=== PATIENT | female | born 1930 | race Caucasian/White ===

== ENCOUNTER 2019-09-08 16:22 | Inpatient (IN) | payer MEDICARE ==
[~2019-09-08] VITALS: Ht 162 cm; Wt 66.9 kg
[~2019-09-08 16:22] MED LIST: ACHD5005 PO; ATOR10TA PO; LOSA1TAB23 PO; Multivitamins/Minerals Therap PO; POLY17PO31 PO; RIVA20TA2 PO; TRAM50TA2 PO; VENL37.52 PO; VENL75CA PO
[2019-09-08] MEDS ORDERED: LACTATED RINGERS 1,000 ML IV ONE ×2 (16:30→16:35)
--- NOTE | 2019-09-08 16:44 | ED Fall/Injury ---
General Stated Complaint: FALL Source: patient, family, EMS Exam Limitations: no limitations History of Present Illness Date Seen by Provider: Sep 08, 2019 Time Seen by Provider: 16:21 Initial Comments Patient presents to ER by EMS from home with chief complaint that she had a fall. She's been having episodes of feeling like she is about to pass out and he r doctor, Dr. Baker had recently started her on a new medication but she has not started taking it yet. She is on losartan for high blood pressure as well as atorvastatin. She is not feeling dizzy like the room is spinning or she's being pulled to one side or the other. No history of stroke. No weakness numbness tingling, facial droop or slurred speech. She was able to crawl to a cell phone and call for EMS. She's not sure when she fell but she knows it was this morning several hours ago. She denies dysuria fever chills, diarrhea or discharge. She does have a occasional cough. She does not use oxygen at baseline. EMS about her on 2 L because her oxygen sats were in the 90% range. Allergies and Home Medications Allergies Coded Allergies: No Known Drug Allergies (Unverified , 07/28/15) Home Medications Atorvastatin Calcium 10 Mg Tablet, 10 MG PO HS, (Reported) Hydrocodone Bit/Acetaminophen 1 Each Tablet, 1-2 TAB PO Q4H PRN for MODERATE PAIN Prescribed by: OVIDIO DURÁN on 08/04/15735 Losartan/Hydrochlorothiazide 1 Each Tablet, 1 TAB PO HS, (Reported) Polyethylene Glycol 3350 17 Gm Powd.pack, 17 GM PO DAILY PRN for CONSTIPATION Prescribed by: OVIDIO DURÁN on 08/04/15735 Rivaroxaban 20 Mg Tablet, 20 MG PO DAILY@1700 Prescribed by: OVIDIO DURÁN on 08/04/15735 Tramadol HCl 50 Mg Tablet, 50-100 MG PO Q4H PRN for MILD PAIN Prescribed by: OVIDIO DURÁN on 08/04/15735 Venlafaxine HCl 75 Mg Cap.er.24h, 75 MG PO HS, (Reported) [Multivitamins/Minerals Therap] 1 EA TABLET, 1 EA PO DAILY@0700 Prescribed by: OVIDIO DURÁN on 08/04/15735 Patient Home Medication List Home Medication List Reviewed: Yes Review of Systems Review of Systems Constitutional: No chills, No fever; malaise, weakness Eyes: Denies Blindness, Denies Blurred Vision Ears, Nose, Mouth, Throat: denies ear pain, denies ear discharge Respiratory: cough; No phlegm, No short of breath, No wheezing Cardiovascular: No chest pain, No edema Gastrointestinal: No abdominal pain, No constipation, No diarrhea, No nausea Genitourinary: No discharge, No dysuria Musculoskeletal: No back pain, No joint pain All Other Systems Reviewed Negative Unless Noted: Yes Past Thcleqo-Oeppvc-Cyjvrt Hx Patient Social History Alcohol Use: Denies Use Recreational Drug Use: No Smoking Status: Never a Smoker 2nd Hand Smoke Exposure: No Recent Foreign Travel: No Contact w/Someone Who Travel: No Immunizations Up To Date Tetanus Booster (TDap): More than 5yrs Date of Pneumonia Vaccine: Jul 30, 2015 Date of Influenza Vaccine: Jul 30, 2015 Past Medical History High Cholesterol, Hypertension Reproductive Disorders: No Sexually Transmitted Disease: No HIV/AIDS: No Fractures Cataract Depression Eczema Adverse Reaction/Blood Tranf: No Family Medical History FH: CHF (congestive heart failure) G8 BROTHER FH: hearing loss G8 BROTHER Parkinson's disease G8 BROTHER Physical Exam Vital Signs Vital Signs - First Documented 09/08/19 09/08/19 17:04 19:26 Temp 36.3 Pulse 115 Resp 18 B/P (MAP) 85/54 (64) Pulse Ox 96 O2 Flow Rate 2.00 Capillary Refill : Height, Weight, BMI Height: 5'3.00" Weight: 144lbs. oz. 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, no motor/sensory deficits, alert, normal mood/affect, oriented x 3 Skin: normal color, warm/dry Progress/Results/Core Measures Results/Orders Lab Results Laboratory Tests Test 09/08/19 16:40 09/08/19 16:59 09/08/19 18:00 09/08/19 18:10 Range/Units White Blood Count 17.3 H 4.3-11.0 10^3/uL Red Blood Count 3.47 L 4.35-5.85 10^6/uL Hemoglobin 10.9 L 11.5-16.0 G/DL Hematocrit 32 L 35-52 % Mean Corpuscular Volume 92 80-99 FL Mean Corpuscular Hemoglobin 31 25-34 PG Mean Corpuscular Hemoglobin Concent 34 32-36 G/DL Red Cell Distribution Width 14.9 H 10.0-14.5 % Platelet Count 194 130-400 10^3/uL Mean Platelet Volume 10.4 7.4-10.4 FL Neutrophils (%) (Auto) 87 H 42-75 % Lymphocytes (%) (Auto) 7 L 12-44 % Monocytes (%) (Auto) 6 0-12 % Eosinophils (%) (Auto) 0 0-10 % Basophils (%) (Auto) 0 0-10 % Neutrophils # (Auto) 15.1 H 1.8-7.8 X 10^3 Lymphocytes # (Auto) 1.1 1.0-4.0 X 10^3 Monocytes # (Auto) 1.0 0.0-1.0 X 10^3 Eosinophils # (Auto) 0.1 0.0-0.3 10^3/uL Basophils # (Auto) 0.0 0.0-0.1 10^3/uL Neutrophils % (Manual) 91 % Lymphocytes % (Manual) 4 % Monocytes % (Manual) 5 % Anisocytosis SLIGHT Prothrombin Time 15.5 H 12.2-14.7 SEC INR Comment 1.2 0.8-1.4 Activated Partial Thromboplast Time 33 24-35 SEC Sodium Level 137 135-145 MMOL/L Potassium Level 3.3 L 3.6-5.0 MMOL/L Chloride Level 103 98-107 MMOL/L Carbon Dioxide Level 20 L 21-32 MMOL/L Anion Gap 14 5-14 MMOL/L Blood Urea Nitrogen 22 H 7-18 MG/DL Creatinine 1.38 H 0.60-1.30 MG/DL Estimat Glomerular Filtration Rate 36 BUN/Creatinine Ratio 16 Glucose Level 163 H 70-105 MG/DL Lactic Acid Level 3.09 *H 5.06 *H 0.50-2.00 MMOL/L Calcium Level 9.1 8.5-10.1 MG/DL Corrected Calcium 9.1 8.5-10.1 MG/DL Total Bilirubin 0.7 0.1-1.0 MG/DL Aspartate Amino Transf (AST/SGOT) 10 5-34 U/L Alanine Aminotransferase (ALT/SGPT) 8 0-55 U/L Alkaline Phosphatase 137 H 40-136 U/L Total Creatine Kinase 47 29-168 U/L Troponin I 0.301 *H <0.028 NG/ML C-Reactive Protein High Sensitivity 1.92 H 0.00-0.50 MG/DL B-Type Natriuretic Peptide 339.6 H <100.0 PG/ML Total Protein 6.7 6.4-8.2 GM/DL Albumin 4.0 3.2-4.5 GM/DL Blood Gas Puncture Site RIGHT RADIAL Blood Gas Patient Temperature 35 Arterial Blood pH 7.42 7.37-7.43 Arterial Blood Partial Pressure CO2 26 L 35-45 MMHG Arterial Blood Partial Pressure O2 68 L 79-93 MMHG Arterial Blood HCO3 17 *L 23-27 MMOL/L Arterial Blood Total CO2 18.0 L 21.0-31.0 MMOL/L Arterial Blood Oxygen Saturation 95 94-100 % Arterial Blood Base Excess -6.9 L -2.5-2.5 MMOL/L [facility] Test POSITIVE Blood Gas Ventilator Setting NO Blood Gas Inspired Oxygen 2 L Urine Color DARK YELLOW Urine Clarity SL CLOUDY Urine pH 6.0 5-9 Urine Specific [place] 1.025 H 1.016-1.022 Urine Protein NEGATIVE NEGATIVE Urine Glucose (UA) NEGATIVE NEGATIVE Urine Ketones TRACE H NEGATIVE Urine Nitrite POSITIVE NEGATIVE Urine Bilirubin NEGATIVE NEGATIVE Urine Urobilinogen 1.0 < = 1.0 MG/DL Urine Leukocyte Esterase TRACE NEGATIVE Urine RBC (Auto) NEGATIVE NEGATIVE Urine RBC NONE /HPF Urine WBC 2-5 /HPF Urine Squamous Epithelial Cells 2-5 /HPF Urine Crystals NONE /LPF Urine Bacteria LARGE H /HPF Urine Casts NONE /LPF Urine Mucus NEGATIVE /LPF Urine Culture Indicated YES Micro Results Microbiology 09/08/19 Influenza Types A,B Antigen (KEV) - Final, Complete My Orders Orders - FLAKITA WOODS Ed Iv/Invasive Line Start (09/08/19 16:30) Lactated Ringers (Lr 1000 Ml Iv Solution (09/08/19 16:30) Cbc With Automated Diff (09/08/19 16:30) Comprehensive Metabolic Panel (09/08/19 16:30) Hs C Reactive Protein (09/08/19 16:30) Troponin I (09/08/19 16:30) BNP (09/08/19 16:30) Continuous Ekg Monitoring (09/08/19 16:30) Ekg Tracing (09/08/19 16:30) Chest 1 View, Ap/Pa Only (09/08/19 16:30) Creatine Kinase (09/08/19 16:30) Ct Head/Cervical Spine Wo (09/08/19 16:30) Ua Culture If Indicated (09/08/19 16:30) Blood Culture (09/08/19 16:35) Sputum Culture (09/08/19 16:35) Protime With Inr (09/08/19 16:35) Partial Thromboplastin Time (09/08/19 16:35) Ed Iv/Invasive Line Start (09/08/19 16:35) Ed Iv/Invasive Line Start (09/08/19 16:35) Vital Signs Adult Sepsis Patie Q15M (09/08/19 16:35) O2 (09/08/19 16:35) Remove Rings In Anticipation O (09/08/19 16:35) Lactic Acid Analyzer (09/08/19 16:35) Influenza A And B Antigens (09/08/19 16:35) Lactated Ringers (Lr 1000 Ml Iv Solution (09/08/19 16:35) Cefepime Injection (Maxipime Injection) (09/08/19 16:45) Arterial Blood Gas (09/08/19 16:56) Arterial Blood Draw (09/08/19 ) Manual Differential (09/08/19 16:40) Aspirin Enteric Coated Tablet (Ecotrin T (09/08/19 17:45) Aspirin Chewable Tablet (Baby Aspirin Ch (09/08/19 17:38) Urine Culture (09/08/19 18:00) Ns W/Kcl 20 Meq/L (Ns Iv W/Kcl 20 Meq/L) (09/08/19 20:15) Medications Given in ED Current Medications Medications Dose Ordered Sig/Kelly Route Start Time Stop Time Status Last Admin Dose Admin Aspirin 81 mg STK-MED ONCE .ROUTE 09/08/19 17:38 09/08/19 17:41 DC 09/08/19 17:46 324 MG Cefepime HCl 1000 mg/Sterile Water 10 ml @ 200 mls/hr ONCE ONCE IV 09/08/19 16:45 09/08/19 16:47 DC 09/08/19 17:11 200 MLS/HR Lactated Ringer's 1,000 ml @ 0 mls/hr Q0M ONCE IV 09/08/19 16:30 09/08/19 16:33 DC 09/08/19 17:10 1,000 MLS/HR Lactated Ringer's 1,000 ml @ 0 mls/hr Q0M ONCE IV 09/08/19 16:35 09/08/19 16:38 DC 09/08/19 18:20 1,000 MLS/HR Vital Signs/I&O 09/08/19 09/08/19 09/08/19 09/08/19 17:04 19:26 19:29 19:30 Temp 36.3 36.3 Pulse 115 105 114 Resp 18 18 B/P (MAP) 85/54 (64) 100/67 (78) 85/54 Pulse Ox 96 O2 Flow Rate 2.00 2.00 Progress Progress Note : Time: 16:46 Progress Note Patient is hypotensive with tachycardia in the 110 to 130 range. She has a blood sugar 170 per EMS but is not diabetic. We'll check a CPK give her 30 mL/kg fluid bolus of lactated Ringer's which is 2 L. We will obtain chest x-ray CT of the head and neck and initiate a septic workup although other than a cough we do not have a infectious source. We'll check a flu swab. An ABG will be helpful as her oxygen sat is in the upper 80s to 90% on room air. EKG troponin and BNP Initial ECG Impression Date: Sep 08, 2019 Initial ECG Impression Time: 16:39 Initial ECG Rate: 110 Initial ECG Rhythm: S.Tach Initial ECG Intervals: Normal Initial ECG Impression: Normal Comment Sinus tachycardia without clinically relevant ST elevation or depression. Diagnostic Imaging Diagonstic Imaging: Xray Plain Films/CT/US/NM/MRI: chest (1v) Comments NAME: SHABANA WEST MED REC#: [id number] PT STATUS: REG ER : 1930 PHYSICIAN: FLAKITA WOODS MD ADMIT DATE: 09/08/19/ER Draft POSDate of Exam:09/08/19 CHEST 1 VIEW, AP/PA ONLY INDICATION: Dizziness. EXAMINATION: Portable chest at 5:31 p.m. FINDINGS: Heart size and pulmonary vascularity are normal. Lungs are clear. There are no effusions or pneumothoraces. IMPRESSION: Negative chest. Dictated on workstation # [id number] Dict: 09/08/191813 Trans: 09/08/191815 [facility] [id number] Interpreted by: OFE CAST MD Electronically signed by: Reviewed: Reviewed by Me Diagonstic Imaging: CT (without IV contrast) Plain Films/CT/US/NM/MRI: c-spine, head Comments NAME: SHABANA WEST [facility] REC#: [id number] PT STATUS: REG ER : 1930 PHYSICIAN: FLAKITA WOODS MD ADMIT DATE: 09/08/19/ER Draft POSDate of Exam:09/08/19 CT HEAD/CERVICAL SPINE WO PROCEDURE: CT head and CT cervical spine without contrast. TECHNIQUE: Multiple contiguous axial images were obtained through the brain and cervical spine without the use of intravenous contrast. Sagittal and coronal reformations through the cervical spine were then performed. Auto Exposure Controls were utilized during the CT exam to meet ALARA standards for radiation dose reduction. INDICATION: Neck injury from a fall. CT HEAD: The ventricles are normal in size, shape and position. There is some decreased density in the periventricular white matter in both cerebral hemispheres, consistent with chronic small vessel ischemic change. There are no masses or hemorrhages. There are no extra-axial fluid collections. IMPRESSION: Chronic ischemic leukoencephalopathy. No acute abnormality is seen. CT CERVICAL SPINE: Vertebral body height and alignment appear normal. There are degenerative disc changes at C4-C5, C5-C6 and C6-C7. There is no fracture or prevertebral soft tissue swelling. IMPRESSION: Degenerative disc changes. No acute abnormality is seen. Dictated on workstation # [id number] Dict: 09/08/19 1756 Trans: 09/08/19 1801 [facility] [id number] Interpreted by: OFE CAST MD Electronically signed by: Reviewed: Reviewed by Me Focused Exam Lactate Level 09/08/19 16:40: Lactic Acid Level 3.09*H 09/08/19 18:10: Lactic Acid Level 5.06*H Lactic Acid Level Laboratory Tests Test 09/08/19 16:40 09/08/19 18:10 Lactic Acid Level 3.09 MMOL/L (0.50-2.00) *H 5.06 MMOL/L (0.50-2.00) *H Departure Communication (Admissions) Time/Spoke to Admitting Phy: 20:05 Dr. Cummings agrees to admit the ICU. He agrees with consult to cardiology. He agrees with cefepime. Time/Spoke to Consulting Phy: 20:15 Dr. Rashid agrees the elevated troponin is likely due to the hypotension and would recommend we treat the underlying condition. The troponin and no anticoagulants at this time. He would agree with a DVT prophylaxis with Lovenox. Impression Primary Impression: Severe sepsis Additional Impressions: Elevated troponin I level UTI (urinary tract infection) Qualified Codes: N30.00 - Acute cystitis without hematuria Disposition: ADMITTED INPATIENT Condition: Critical Admissions Decision to Admit Reason: Admit from ER (General) Decision to Admit/Date: Sep 08, 2019 Time/Decision to Admit Time: 18:00 Departure-Patient Inst. Referrals: MICHELLE BAKER MD (PCP/Family) Primary Care Physician FLAKITA WOODS Sep 08, 2019 16:44 POS
[2019-09-08] MEDS ORDERED: CEFEPIME INJECTION 1,000 MG in WATER (STERILE) FOR INJECTION 10 ML IV ONE (16:45)
[2019-09-08 16:55] LABS: BASOPHILS % (AUTO) 0 % (0-10); EOSINOPHILS # (AUTO) 0.1 10^3/uL (0.0-0.3); EOSINOPHILS % (AUTO) 0 % (0-10); HEMATOCRIT 32 % (35-52); HEMOGLOBIN 10.9 G/DL (11.5-16.0); LYMPHOCYTES # (AUTO) 1.1 X 10^3 (1.0-4.0); LYMPHOCYTES % (AUTO) 7 % (12-44); MEAN CORPUSCULAR HEMOGLOBIN 31 PG (25-34); MEAN CORPUSCULAR HGB CONC 34 G/DL (32-36); MEAN CORPUSCULAR VOLUME 92 FL (80-99); MEAN PLATELET VOLUME 10.4 FL (7.4-10.4); MONOCYTES % (AUTO) 6 % (0-12); NEUTROPHILS # (AUTO) 15.1 X 10^3 (1.8-7.8); NEUTROPHILS % (AUTO) 87 % (42-75); PLATELET COUNT 194 10^3/uL (130-400); RED CELL DISTRIBUTION WIDTH 14.9 % (10.0-14.5); WHITE BLOOD COUNT 17.3 10^3/uL (4.3-11.0)
[2019-09-08 17:00] LABS: INR 1.2 (0.8-1.4); PROTHROMBIN TIME PATIENT 15.5 SEC (12.2-14.7)
[2019-09-08 17:03] LABS: ABG BASE EXCESS -6.9 MMOL/L (-2.5-2.5); ABG OXYGEN SATURATION 95 % (94-100); ABG PCO2 26 MMHG (35-45); ABG PH 7.42 (7.37-7.43); ABG PO2 68 MMHG (79-93)
[2019-09-08 17:08] LABS: ALLENS TEST POSITIVE; INSPIRED O2 2 L; PATIENT TEMP 35; VENTILATOR NO
[2019-09-08 17:09] LABS: BILIRUBIN,TOTAL 0.7 MG/DL (0.1-1.0); CALCIUM 9.1 MG/DL (8.5-10.1); CREATININE SERUM 1.38 MG/DL (0.60-1.30); POTASSIUM 3.3 MMOL/L (3.6-5.0); TOTAL PROTEIN 6.7 GM/DL (6.4-8.2)
[2019-09-08 17:16] LABS: ANISOCYTOSIS SLIGHT; LYMPHOCYTES % (MANUAL) 4 %; MONOCYTES % (MANUAL) 5 %; NEUTROPHILS % (MANUAL) 91 %
[2019-09-08] MEDS ORDERED: ASPIRIN 81 MG CHEW (CHILDREN'S ASA) ONE (17:38)
[2019-09-08] MEDS ORDERED: ASPIRIN E.C. 81 MG (ECOTRIN) TAB PO ONE (17:45)
--- NOTE | 2019-09-08 18:01 | Diagnostic Imaging Report ---
PROCEDURE: CT head and CT cervical spine without contrast. TECHNIQUE: Multiple contiguous axial images were obtained through the brain and cervical spine without the use of intravenous contrast. Sagittal and coronal reformations through the cervical spine were then performed. Auto Exposure Controls were utilized during the CT exam to meet ALARA standards for radiation dose reduction. INDICATION: Neck injury from a fall. CT HEAD: The ventricles are normal in size, shape and position. There is some decreased density in the periventricular white matter in both cerebral hemispheres, consistent with chronic small vessel ischemic change. There are no masses or hemorrhages. There are no extra-axial fluid collections. IMPRESSION: Chronic ischemic leukoencephalopathy. No acute abnormality is seen. CT CERVICAL SPINE: Vertebral body height and alignment appear normal. There are degenerative disc changes at C4-C5, C5-C6 and C6-C7. There is no fracture or prevertebral soft tissue swelling. IMPRESSION: Degenerative disc changes. No acute abnormality is seen. Dictated by: Dictated on workstation # [id number]
--- NOTE | 2019-09-08 18:16 | Diagnostic Imaging Report ---
INDICATION: Dizziness. EXAMINATION: Portable chest at 5:31 p.m. FINDINGS: Heart size and pulmonary vascularity are normal. Lungs are clear. There are no effusions or pneumothoraces. IMPRESSION: Negative chest. Dictated by: Dictated on workstation # [id number]
[2019-09-08 18:22] LABS: BILIRUBIN,URINE NEGATIVE (NEGATIVE); CLARITY,URINE SL CLOUDY; COLOR,URINE DARK YELLOW; GLUCOSE, URINE (UA) NEGATIVE (NEGATIVE); KETONES,URINE TRACE (NEGATIVE); LEUKOCYTE ESTERASE ,URINE TRACE (NEGATIVE); NITRITE,URINE POSITIVE (NEGATIVE); PROTEIN,URINE NEGATIVE (NEGATIVE)
[2019-09-08 18:30] LABS: BACTERIA,URINE LARGE /HPF
[2019-09-08 19:26] VITALS: BP 100/67
[2019-09-08] MEDS ORDERED: NS W/KCL 20 MEQ/L 1,000 ML IV SCH (20:15)
--- NOTE | 2019-09-08 20:33 | NUR ---
REPORT RECIEVED FROM CINTHYA TAYLOR. ASSUMED PRIMARY NURSE ROLE.
--- NOTE | 2019-09-08 20:50 | NUR ---
REPORT GIVEN TO MATEUS MENDES.
--- NOTE | 2019-09-08 23:20 | NUR ---
SHABANA WEST admitted to room CU8-1, with an admitting diagnosis of SEPSIS, ELEVATED TROPONIN, UTI, HYPOXIA , on 09/08/19 from ED via STRETCHER, accompanied by HOSPITAL STAFF. SHABANA WEST introduced to surroundings, call light, bed controls, phone, TV, temperature control, lights, meal times, smoking policy, visitor policy, side rail policy, bathrooms and showers. Patient Rights given to patient in the handbook.SHABANA WEST verbalizes understanding that [facility] is not responsible for the loss or damage to any personal effects or valuables that are kept in the patients posession during their hospitalization. SHABANA WEST verbalizes understanding of Interdisciplinary Patient Education. Patient and/or family were informed about the Rapid Response Team and its purpose.
[2019-09-08 23:30] VITALS: BP 134/88
[2019-09-08 23:45] VITALS: BP 143/87
[2019-09-09] VITALS (12 sets, daily range): BP systolic 106–139; BP diastolic 57–83
[2019-09-09] MEDS ORDERED: VASOPRESSIN INJECTION 20 UNIT in NORMAL SALINE 100 ML IV SCH (00:42)
[2019-09-09] MEDS ORDERED: CEFEPIME INJECTION 1,000 MG in WATER (STERILE) FOR INJECTION 10 ML IV SCH ×2 (00:45→03:00)
[2019-09-09] MEDS ORDERED: ONDANSETRON 4 MG/2 ML (SDV) Z0FRAN IV PRN (00:45)
[2019-09-09] MEDS ORDERED: EPINEPHrine 1 MG INJECTION 2 MG in NS (IVPB) 250 ML IV SCH (00:45)
[2019-09-09] MEDS ORDERED: ACETAMINOPHEN 500 MG TAB (TYLENOL) PO PRN ×2 (00:45→16:15)
[2019-09-09] MEDS: NS W/KCL 20 MEQ/L 1,000 ML IV SCH ×3 (00:47→13:12)
[2019-09-09] MEDS: NOREPINEPHRINE 4 MG in NS (IVPB) 250 ML IV SCH ×2 (00:56→10:15)
[2019-09-09] MEDS: ENOXAPARIN 40 MG/0.4 ML (LOVENOX) SYR SC SCH (01:23)
--- NOTE | 2019-09-09 05:39 | Pulmonary Consultation ---
History of Present Illness History of Present Illness Date of Admission Allergies and Home Medications Allergies Coded Allergies: No Known Drug Allergies (Unverified , 07/28/15) Home Medications Atorvastatin Calcium 10 Mg Tablet, 10 MG PO HS, (Reported) Losartan/Hydrochlorothiazide 1 Each Tablet, 1 TAB PO HS, (Reported) Venlafaxine HCl 75 Mg Cap.er.24h, 75 MG PO HS, (Reported) Past Nnzmlpq-Myxhsh-Czjyma Hx Patient Social History Alcohol Use: Denies Use Recreational Drug Use: No Smoking Status: Never a Smoker 2nd Hand Smoke Exposure: No Recent Foreign Travel: No Contact w/Someone Who Travel: No Recent Infectious Disease Expo: No Recent Hopitalizations: No Physical Abuse: No Sexual Abuse: No Mistreated: No Fear: No Immunizations Up To Date Tetanus Booster (TDap): More than 5yrs Date of Pneumonia Vaccine: Sep 09, 2015 Date of Influenza Vaccine: Aug 10, 2019 Seasonal Allergies Seasonal Allergies: No Past Medical History Surgeries: No Respiratory: No Cardiac: Yes High Cholesterol, Hypertension Neurological: No : No Reproductive Disorders: No Sexually Transmitted Disease: No HIV/AIDS: No Gastrointestinal: No Musculoskeletal: No Fractures Endocrine: No Cataract Cancer: No Psychosocial: Yes Depression Integumentary: No Eczema Blood Disorders: No Adverse Reaction/Blood Tranf: No Family Medical History FH: CHF (congestive heart failure) G8 BROTHER FH: hearing loss G8 BROTHER Parkinson's disease G8 BROTHER Sepsis Event Evaluation Height, Weight, BMI Height: 5'3.00" Weight: 144lbs. oz. 65.610857fy; 26.67 BMI Method:Stated Exam Exam Vital Signs Date Time Temp Pulse Resp B/P (MAP) Pulse Ox O2 Delivery O2 Flow Rate FiO2 09/09/19 05:00 87 17 120/75 (90) 98 Nasal Cannula 2.00 09/09/19 04:00 95 Nasal Cannula 2.00 09/09/19 04:00 87 18 120/67 (84) 95 Nasal Cannula 2.00 09/09/19 03:00 92 13 126/77 (93) 95 Nasal Cannula 2.00 09/09/19 02:00 92 11 118/81 (93) 96 Nasal Cannula 2.00 09/09/19 01:19 93 09/09/19 01:00 93 18 115/78 (90) 97 Nasal Cannula 2.00 09/09/19 00:07 97 17 138/83 (101) 96 Nasal Cannula 2.00 09/08/19 23:45 106 26 143/87 (105) 97 Nasal Cannula 2.00 09/08/19 23:30 103 19 134/88 (103) 97 Nasal Cannula 2.00 09/08/19 23:30 103 19 134/88 (103) 97 Nasal Cannula 2.00 09/08/19 23:23 102 09/08/19 23:20 36.0 09/08/19 23:20 96 Nasal Cannula 2.00 09/08/19 23:10 36.3 96 18 93/75 (64) 96 Nasal Cannula 2.00 09/08/19 19:30 36.3 114 18 85/54 09/08/19 19:29 2.00 09/08/19 19:26 105 18 100/67 (78) 96 2.00 09/08/19 17:04 36.3 115 85/54 (64) I & O 09/09/19 07:00 Intake Total 3020 ml Balance 3020 ml Height & Weight Height: 5'3.00" Weight: 144lbs. oz. 65.911772is; 26.67 BMI Method:Stated Capillary Refill: Less Than 3 Seconds Peripheral Pulses: 2+ Radial Pulses (R), 2+ Radial Pulses (L) Gastrointestinal: normal bowel sounds, non tender, soft Results Lab Laboratory Tests 09/08/19 16:40 Assessment/Plan Assessment/Plan Severe Sepsis secondary to UTI -Currently Cefepime -[place] cultures pending NSTEMI probably secondary to sepsis - No CP, N, V Hypoxia -Currently requiring 2 liters SHASTA SANCHEZ DO Sep 09, 2019 05:39 POS
[2019-09-09 05:40] LABS: BASOPHILS % (AUTO) 0 % (0-10); EOSINOPHILS % (AUTO) 0 % (0-10); HEMATOCRIT 27 % (35-52); HEMOGLOBIN 9.2 G/DL (11.5-16.0); LYMPHOCYTES % (AUTO) 10 % (12-44); MEAN CORPUSCULAR HEMOGLOBIN 31 PG (25-34); MEAN CORPUSCULAR HGB CONC 34 G/DL (32-36); MEAN CORPUSCULAR VOLUME 93 FL (80-99); MEAN PLATELET VOLUME 10.7 FL (7.4-10.4); MONOCYTES # (AUTO) 0.7 X 10^3 (0.0-1.0); MONOCYTES % (AUTO) 7 % (0-12); NEUTROPHILS # (AUTO) 7.9 X 10^3 (1.8-7.8); NEUTROPHILS % (AUTO) 83 % (42-75); PLATELET COUNT 156 10^3/uL (130-400); RED CELL DISTRIBUTION WIDTH 14.8 % (10.0-14.5); WHITE BLOOD COUNT 9.5 10^3/uL (4.3-11.0)
[2019-09-09 05:59] LABS: CALCIUM 8.1 MG/DL (8.5-10.1); CREATININE SERUM 1.13 MG/DL (0.60-1.30); MAGNESIUM 1.2 MG/DL (1.6-2.4); PHOSPHORUS 2.7 MG/DL (2.3-4.7); POTASSIUM 4.2 MMOL/L (3.6-5.0)
[2019-09-09] MEDS ORDERED: POTASSIUM CL 10MEQ/50ML IVPB 50 ML IV SCH (06:00)
[2019-09-09] MEDS ORDERED: KCL 20 MEQ TAB (K-DUR) PO SCH (06:00)
[2019-09-09] MEDS ORDERED: MAGNESIUM 1 GM/100 ML IVPB 100 ML IV SCH (06:00)
[2019-09-09] MEDS: MAGNESIUM 1 GM/100 ML IVPB 100 ML IV SCH ×3 (06:27→09:59)
--- NOTE | 2019-09-09 07:34 | Diagnostic Imaging Report ---
Indication: Dyspnea. Comparison: 09/08/2019. Discussion: Single portable upright view of the chest was obtained. Prominence of the right mediastinum is again noted which is stable and felt to be due to normal underlying vascular structures as seen on previous CT. Normal heart size. No focal consolidation, pleural fluid, or pneumothorax. No osseous abnormality. Impression: 1. Negative portable chest. Dictated by: Dictated on workstation # [id number]
[2019-09-09] MEDS: ASPIRIN 81 MG CHEW (CHILDREN'S ASA) PO SCH (09:58)
--- NOTE | 2019-09-09 12:24 | History & Physical-Hospitalist ---
History of Present Illness HPI/Chief Complaint Chief complaint: Fall with severe sepsis History of present illness: This is an 88-year-old clinic patient of Dr. Duggan who has a past medical history of hypertension hyperlipidemia who presented to the ER after she suffered a fall was able to get to her cell phone called 911 and was taken to the ER. She was found to have hypotension and elevated lactic acid of 5 with an abnormal UA consistent with UTI so cefepime was given along with severe sepsis protocol IV fluid resuscitation and patient was placed in the ICU. Elevated troponin likely due to hypotension but cardiology was consulted and recommended conservative management. Patient feels much better was really where she was that sick. Family at the bedside. We will continue holding the blood pressure medication and restart her Effexor and atorvastatin. Patient denies any pain. She does not wear oxygen at home. Source: patient, family, RN/MD Exam Limitations: no limitations Date Seen 09/09/19 Time Seen by a Provider: 11:00 Attending Physician Perlita Cummings MD PCP Jose Duggan MD Referring Physician Date of Admission Sep 08, 2019 at 20:20 Home Medications & Allergies Home Medications Reviewed patient Home Medication Reconciliation performed by pharmacy medication reconciliations weatherization field technician and/or nursing. Patients Allergies have been reviewed. Allergies Allergies Coded Allergies No Known Drug Allergies (Phogjqkvas05/19/15) Past Wnsvkew-Jxfhew-Jnzlkx Hx Past Med/Social Hx: Reviewed Nursing Past Med/Soc Hx, Reviewed and Corrections made Patient Social History Marrital Status: single Employed/Student: retired Alcohol Use: Denies Use Recreational Drug Use: No Smoking Status: Never a Smoker 2nd Hand Smoke Exposure: No Recent Foreign Travel: No Contact w/other who traveled: No Recent Hopitalizations: No Recent Infectious Disease Expo: No Immunizations Up To Date Tetanus Booster (TDap): More than 5yrs Date of Pneumonia Vaccine: Sep 09, 2015 Date of Influenza Vaccine: Aug 10, 2019 Seasonal Allergies Seasonal Allergies: No Past Medical History Cardiac: High Cholesterol, Hypertension : No Reproductive: No Sexually Transmitted Disease: No HIV/AIDS: No Musculoskeletal: Arthritis, Fractures HEENT: Cataract Psychosocial: Anxiety, Depression Skin/Integumentary: Eczema History of Blood Disorders: No Adverse Reaction to Blood Ludwig: No Family History FH: CHF (congestive heart failure) G8 BROTHER FH: hearing loss G8 BROTHER Parkinson's disease G8 BROTHER Review of Systems Constitutional: see HPI, malaise, weakness Physical Exam Physical Exam Vital Signs Vital Signs - First Documented 09/08/19 09/08/19 09/08/19 17:04 19:26 23:10 Temp 36.3 Pulse 115 Resp 18 B/P (MAP) 85/54 (64) Pulse Ox 96 O2 Delivery Nasal Cannula O2 Flow Rate 2.00 Capillary Refill : Less Than 3 Seconds Height, Weight, BMI Height: 5'3.00" Weight: 144lbs. oz. [id number]; 26.67 BMI Method:Stated General Appearance: No Apparent Distress, WD/WN, Anxious, Chronically ill Eyes: Right Eye Normal Inspection, Right Eye PERRL HEENT: PERRL/EOMI, Normal ENT Inspection, Pharynx Normal, Moist Mucous Membranes Neck: Full Range of Motion, Normal Inspection, Non Tender Respiratory: Chest Non Tender, Lungs Clear, Normal Breath Sounds, No Accessory Muscle Use, No Respiratory Distress Cardiovascular: Regular Rate, Rhythm, No Edema, No Gallop, No JVD, No Murmur, Normal Peripheral Pulses Gastrointestinal: Normal Bowel Sounds, No Organomegaly, No Pulsatile Mass, Non Tender, Soft Back: Normal Inspection, No CVA Tenderness, No Vertebral Tenderness Extremity: Normal Capillary Refill, Normal Inspection, Normal Range of Motion, Non Tender, No Calf Tenderness, No Pedal Edema Neurologic/Psychiatric: Alert, Oriented x3, No Motor/Sensory Deficits, Normal Mood/Affect, finisher operator II-XII Norm as Tested, Disoriented (subtle poor recall) Skin: Normal Color, Warm/Dry Lymphatic: No Adenopathy Results Results/Procedures Labs Laboratory Tests 09/08/19 16:40 09/09/19 04:21 Patient resulted labs reviewed. Assessment/Plan Admission Diagnosis Assessment: Severe sepsis with lactic acid 5.0 with hypotension and UTI E coli Fall HTN as outpatient HLP Subtle confusion noted Plan: IV abx Lovenox DVT PPx Supportive care PT/OT Admission Status: Inpatient Order (span 2 midnights) Reason for Inpatient Admission: Severe sepsis Diagnosis/Problems Diagnosis/Problems (1) Severe sepsis Status: Acute (2) Elevated troponin I level Status: Acute (3) UTI (urinary tract infection) Status: Acute Qualifiers: Urinary tract infection type: acute cystitis Hematuria presence: without hematuria Qualified Codes: N30.00 - Acute cystitis without hematuria Clinical Quality Measures DVT/VTE Risk/Contraindication: Risk Factor Score Per Nursin RFS Level Per Nursing on Admit: 4+=Very High EM WILDE DO Sep 09, 2019 12:24 POS
--- NOTE | 2019-09-09 12:35 | Consultation-Cardiology ---
HPI-Cardiology Cardiology Consultation: Date of Consultation 09/09/19 Time Seen by a Provider: 12:30 Date of Admission 09/08/19 Attending Physician Perlita Cummings MD Admitting Physician Jose Duggan MD Consulting Physician OLIVIA DE LA ROSA MD, MA, FACP, FACC, FSCAI, CCDS HPI: Chief Complaint: Reason for consultation: Elevated troponin HPI 88 yo woman with several days of gen weakness and malaise and postural dizziness and one episode of near-syncope (with posture change) who was admitted to the [facility] yesterday with sepsis and septic shock. Troponin has been mildly elevated. No cp or palp or mickey syncope. Chronic, intermittent leg swelling. No focal weakness Review of Systems-Cardiology Review of Systems Constitutional: As described under HPI Eyes: No vision change Ears/Nose/Throat: No ear discharge, No nasal drainage, No recent hearing loss Respiratory: As described under HPI Cardiovascular: As described under HPI Gastrointestinal: No constipation, No diarrhea, No nausea, No vomiting Genitourinary: No dysuria, No hematuria; urine frequency changes Musculoskeletal: back pain (chronic) Skin: No rash, No ulcerations Psychiatric/Neurological: No seizure, No focal weakness, No syncope Hematologic: No bleeding abnormalities All Other Systems Reviewed Negative Unless Noted: Yes YAR-Ambavl-Gwcyjr Hx Patient Social History Alcohol Use: Denies Use Recreational Drug Use: No Smoking Status: Never a Smoker 2nd Hand Smoke Exposure: No Recent Foreign Travel: No Recent Infectious Disease Expo: No Hospitalization with Isolation: Denies Immunizations Up To Date Tetanus Booster (TDap): More than 5yrs Date of Pneumonia Vaccine: Sep 09, 2015 Date of Influenza Vaccine: Aug 10, 2019 Past Medical History PMH As described under Assessment. Family Medical History Family History: FH: CHF (congestive heart failure) G8 BROTHER FH: hearing loss G8 BROTHER Parkinson's disease G8 BROTHER Allergies and Home Medications Allergies Coded Allergies: No Known Drug Allergies (Unverified , 07/28/15) Home Medications Atorvastatin Calcium 10 Mg Tablet, 10 MG PO HS, (Reported) Losartan/Hydrochlorothiazide 1 Each Tablet, 1 TAB PO HS, (Reported) Venlafaxine HCl 75 Mg Cap.er.24h, 75 MG PO HS, (Reported) Patient Home Medication List Home Medication List Reviewed: Yes Physical Exam-Cardiology Physical Exam Vital Signs/I&O 12/109/09/19 09/09/19 09/09/19 01:00 01:19 02:00 03:00 Pulse 93 93 92 92 Resp 18 11 13 B/P (MAP) 115/78 (90) 118/81 (93) 126/77 (93) Pulse Ox 97 96 95 O2 Delivery Nasal Cannula Nasal Cannula Nasal Cannula O2 Flow Rate 2.00 2.00 2.00 09/09/19 09/09/19 09/09/19 09/09/19 04:00 04:00 05:00 06:00 Pulse 87 87 81 Resp 18 17 14 B/P (MAP) 120/67 (84) 120/75 (90) 114/75 (88) Pulse Ox 95 95 98 O2 Delivery Nasal Cannula Nasal Cannula Nasal Cannula Nasal Cannula O2 Flow Rate 2.00 2.00 2.00 2.00 09/09/19 09/09/19 09/09/19 09/09/19 07:00 08:00 11:36 12:00 Temp 36.7 Pulse 102 87 91 Resp 18 B/P (MAP) 117/68 (84) 114/70 (85) Pulse Ox 96 97 O2 Delivery Nasal Cannula Nasal Cannula O2 Flow Rate 2.00 2.00 09/09/19 12:09 Pulse 92 09/09/19 00:00 Intake Total 2009 ml Balance 2009 ml Capillary Refill : Less Than 3 Seconds Constitutional: AAO x 3, well-developed, well-nourished HEENT: EOMI, hearing is well preserved; No xanthelasmas are seen Neck: carotid pulses are 2 + bilaterally, with good upstrokes Respiratory: No accessory muscle use; other (good bilat air entry, diminished at the base) Cardiovascular: regular rate-rhythm, S1 and S2, systolic murmur (Soft BERHANE at card base) Gastrointestinal: No tender; soft; No guarding, No rebound; audible bowel sounds Extremities: No clubbing, No cyanosis, No significant edema Neurologic/Psychiatric: oriented x 3, other (moves all limbs equally) Skin: No rash on exposed areas, No ulcerations on exposed areas Data Review Labs Laboratory Tests 09/08/19 16:40: White Blood Count 17.3H, Red Blood Count 3.47L, Hemoglobin 10.9L, Hematocrit 32L , Mean Corpuscular Volume 92, Mean Corpuscular Hemoglobin 31, Mean Corpuscular Hemoglobin Concent 34, Red Cell Distribution Width 14.9H, Platelet Count 194, Mean Platelet Volume 10.4, Neutrophils (%) (Auto) 87H, Lymphocytes (%) (Auto) 7L , Monocytes (%) (Auto) 6, Eosinophils (%) (Auto) 0, Basophils (%) (Auto) 0, Neutrophils # (Auto) 15.1H, Lymphocytes # (Auto) 1.1, Monocytes # (Auto) 1.0, Eosinophils # (Auto) 0.1, Basophils # (Auto) 0.0, Neutrophils % (Manual) 91, Lymphocytes % (Manual) 4, Monocytes % (Manual) 5, Anisocytosis SLIGHT, Prothromb in Time 15.5H, INR Comment 1.2, Activated Partial Thromboplast Time 33, Sodium Level 137, Potassium Level 3.3L, Chloride Level 103, Carbon Dioxide Level 20L, Anion Gap 14, Blood Urea Nitrogen 22H, Creatinine 1.38H, Estimat Glomerular Filtration Rate 36, BUN/Creatinine Ratio 16, Glucose Level 163H, Lactic Acid Level 3.09*H, Calcium Level 9.1, Corrected Calcium 9.1, Total Bilirubin 0.7, Aspartate Amino Transf (AST/SGOT) 10, Alanine Aminotransferase (ALT/SGPT) 8, Alkaline Phosphatase 137H, Total Creatine Kinase 47, Troponin I 0.301*H, C- Reactive Protein High Sensitivity 1.92H, B-Type Natriuretic Peptide 339.6H, Total Protein 6.7, Albumin 4.0 09/08/19 16:59: Blood Gas Puncture Site RIGHT RADIAL, Blood Gas Patient Temperature 35, Arterial Blood pH 7.42, Arterial Blood Partial Pressure CO2 26L, Arterial Blood Partial Pressure O2 68L, Arterial Blood HCO3 17*L, Arterial Blood Total CO2 18.0L, Arterial Blood Oxygen Saturation 95, Arterial Blood Base Excess -6.9L, Eomry Test POSITIVE, Blood Gas Ventilator Setting NO, Blood Gas Inspired Oxygen 2 L 09/08/19 18:00: Urine Color DARK YELLOW, Urine Clarity SL CLOUDY, Urine pH 6.0, Urine Specific [place] 1.025H, Urine Protein NEGATIVE, Urine Glucose (UA) NEGATIVE, Urine Ketones TRACEH, Urine Nitrite POSITIVE, Urine Bilirubin NEGATIVE, Urine Urobilinogen 1.0, Urine Leukocyte Esterase TRACE, Urine RBC (Auto) NEGATIVE, Urine RBC NONE, Urine WBC 2-5, Urine Squamous Epithelial Cells 2-5, Urine Crystals NONE, Urine Bacteria LARGEH, Urine Casts NONE, Urine Mucus NEGATIVE, Urine Culture Indicated YES 09/08/19 18:10: Lactic Acid Level 5.06*H 09/08/19 22:58: Lactic Acid Level 1.51, Troponin I 0.580*H 09/09/19 04:21: Troponin I 0.538*H, White Blood Count 9.5, Red Blood Count 2.93L, Hemoglobin 9.2L, Hematocrit 27L, Mean Corpuscular Volume 93, Mean Corpuscular Hemoglobin 31, Mean Corpuscular Hemoglobin Concent 34, Red Cell Distribution Width 14.8H, Platelet Count 156, Mean Platelet Volume 10.7H, Neutrophils (%) (Auto) 83H, Lymphocytes (%) (Auto) 10L, Monocytes (%) (Auto) 7, Eosinophils (%) (Auto) 0, Basophils (%) (Auto) 0, Neutrophils # (Auto) 7.9H, Lymphocytes # (Auto) 1.0, Monocytes # (Auto) 0.7, Eosinophils # (Auto) 0.0, Basophils # (Auto) 0.0, Sodium Level 136, Potassium Level 4.2, Chloride Level 106, Carbon Dioxide Level 17L, Anion Gap 13, Blood Urea Nitrogen 22H, Creatinine 1.13, Estimat Glomerular Filtration Rate 46, BUN/Creatinine Ratio 19, Glucose Level 120H, Calcium Level 8.1L, Phosphorus Level 2.7, Magnesium Level 1.2L 09/09/19 09:05: Troponin I 0.482*H 09/09/19 11:17: Stool Occult Blood Immunoassay POSITIVEH Microbiology 09/08/19 Influenza Types A,B Antigen (KEV) - Final, Complete 09/08/19 Urine Culture - Preliminary, Resulted Escherichia coli Laboratory Tests 09/08/19 16:40 09/09/19 04:21 A/P-Cardiology Assessment/Admission Diagnosis Sepsis with septic shock, improving Mildly elevated troponin, likely type 2 AK due to hypotension from septic shock UTI Anemia of undetermined etiology, managed by the Hosp Svce H/o hypertension Hypomagnesemia (likely due to chronic diuretic therapy for hypertension) Discussion and Recomendations * Echo * Continue ASA * Replenish lytes * Monitor labs * Further recs based on hosp course * I discussed her CV issues with her and her daughter and answered questions Clinical Quality Measures DVT/VTE Risk/Contraindication: Risk Factor Score Per Nursin RFS Level Per Nursing on Admit: 4+=Very High OLIVIA DE LA ROSA MD FACP [facility] Sep 09, 2019 12:35 POS
--- NOTE | 2019-09-09 13:25 | NUR ---
Pt transferred to room 404. Report received from CINTHYA Nieves. Pt introduced to room and surroundings, including call light. Addendum: 09/09/19 at 1348 by RENNY SIERRA RN Report received from RN. Kim
--- NOTE | 2019-09-09 15:30 | NUR ---
received patient and report from Arnold lovelace. i agree with her assessment. Patient is settled and has spoken with daughter via phone.
[2019-09-09] MEDS: CEFEPIME INJECTION 1,000 MG in WATER (STERILE) FOR INJECTION 10 ML IV SCH (15:49)
[2019-09-09] MEDS ORDERED: HYDROcodone/APAP 5 MG/325 MG (LORTAB) TAB PO PRN (16:15)
[2019-09-09] MEDS ORDERED: DOCUSATE SODIUM 100 MG (COLACE) CAP PO PRN (16:15)
[2019-09-09] MEDS ORDERED: LOPERAMIDE 2 MG (IMODIUM) TABLET PO PRN (16:15)
[2019-09-09] MEDS ORDERED: diphenhydrAMINE 25 MG TAB (BENADRYL) PO PRN (16:15)
[2019-09-09] MEDS ORDERED: MELATONIN 3 MG TABLET PO PRN (16:15)
[2019-09-09] MEDS ORDERED: ONDANSETRON 4 MG/2 ML (SDV) Z0FRAN IVP PRN (16:15)
[2019-09-09] MEDS ORDERED: CALCIUM CARBONATE 500 MG (TUMS) TAB.CHEW PO PRN (16:15)
[2019-09-09] MEDS: VENlafaxine XR 75 MG (EFFEXOR XR) CAP PO SCH (20:50)
[2019-09-09] MEDS: SENNA W/DOCUSATE (SENOKOT S) TABLET PO SCH (20:50)
[2019-09-10] VITALS: BP 148/83
[2019-09-10] MEDS: NS W/KCL 20 MEQ/L 1,000 ML IV SCH ×3 (00:04→20:33)
[2019-09-10] MEDS: ENOXAPARIN 40 MG/0.4 ML (LOVENOX) SYR SC SCH (00:49)
[2019-09-10] MEDS: CEFEPIME INJECTION 1,000 MG in WATER (STERILE) FOR INJECTION 10 ML IV SCH ×3 (03:35→20:34)
[2019-09-10 03:51] LABS: BASOPHILS % (AUTO) 0 % (0-10); EOSINOPHILS % (AUTO) 0 % (0-10); HEMATOCRIT 28 % (35-52); HEMOGLOBIN 9.4 G/DL (11.5-16.0); LYMPHOCYTES # (AUTO) 1.5 X 10^3 (1.0-4.0); LYMPHOCYTES % (AUTO) 16 % (12-44); MEAN CORPUSCULAR HEMOGLOBIN 31 PG (25-34); MEAN CORPUSCULAR HGB CONC 34 G/DL (32-36); MEAN CORPUSCULAR VOLUME 93 FL (80-99); MEAN PLATELET VOLUME 10.3 FL (7.4-10.4); MONOCYTES # (AUTO) 0.9 X 10^3 (0.0-1.0); MONOCYTES % (AUTO) 10 % (0-12); NEUTROPHILS # (AUTO) 6.8 X 10^3 (1.8-7.8); NEUTROPHILS % (AUTO) 74 % (42-75); PLATELET COUNT 167 10^3/uL (130-400); RED CELL DISTRIBUTION WIDTH 15.4 % (10.0-14.5); WHITE BLOOD COUNT 9.3 10^3/uL (4.3-11.0)
[2019-09-10 04:00] VITALS: BP 136/75
[2019-09-10 04:04] LABS: CALCIUM 8.3 MG/DL (8.5-10.1); CREATININE SERUM 1.04 MG/DL (0.60-1.30); MAGNESIUM 2.1 MG/DL (1.6-2.4); PHOSPHORUS 1.9 MG/DL (2.3-4.7); POTASSIUM 3.4 MMOL/L (3.6-5.0)
--- NOTE | 2019-09-10 07:59 | Diagnostic Imaging Report ---
INDICATION: Dyspnea Upright portable AP view of chest is obtained. Since the examination one day earlier, there is continued mild increased density in the right perihilar and basilar region. Left lung is clear. There is no evidence of pneumothorax. IMPRESSION: Right perihilar and basilar atelectasis and/or pneumonitis without new abnormality detected. Dictated by: Dictated on workstation # [id number]
[2019-09-10 08:00] VITALS: BP 165/95
--- NOTE | 2019-09-10 08:37 | Progress Note ---
Subjective Date Seen by a Provider: Sep 10, 2019 Time Seen by a Provider: 08:04 Subjective/Events-last exam Patient states she feels much better. Does complain of Lightheadedness upon standing. Lightheadedness is better with oxygen Is not normally on oxygen. "normal" bowel movements No burning on urination Denies shortness of breath Stool Occult was positive Urine culture showed E. Coli and mixed Laura. Review of Systems General: No Chills, No Other (fevers) HEENT: No Head Aches Pulmonary: No Dyspnea, No Cough Cardiovascular: No: Chest Pain, Palpitations Gastrointestinal: No: Nausea, Vomiting, Diarrhea, Constipation Genitourinary: No Dysuria Musculoskeletal: back pain (From laying in bed) Focused Exam Lactate Level 09/08/19 16:40: Lactic Acid Level 3.09*H 09/08/19 18:10: Lactic Acid Level 5.06*H 09/08/19 22:58: Lactic Acid Level 1.51 Objective Exam Last Set of Vital Signs Vital Signs Date Time Temp Pulse Resp B/P (MAP) Pulse Ox O2 Delivery O2 Flow Rate FiO2 09/10/19 07:00 87 09/10/19 04:00 36.3 16 136/75 (95) 99 Room Air 09/09/19 23:00 2.00 Capillary Refill : Less Than 3 Seconds I&O Intake and Output 09/10/19 00:00 Intake Total 1960 ml Output Total 500 ml Balance 1460 ml Intake Oral 550 ml IV Total 1410 ml Output Urine Total 500 ml # Voids 2 # Bowel Movements 1 General: Alert, Oriented X3, No Acute Distress Neck: Supple, No JVD Heart: Regular Rate (and rhthym), No Murmurs Abdomen: Soft, No Tenderness Extremities: Other (1+ edema bilaterally in the LE) Results Lab Laboratory Tests Test 09/08/19 16:59 Blood Gas Puncture Site RIGHT RADIAL Blood Gas Patient Temperature 35 Arterial Blood pH 7.42 Arterial Blood Partial Pressure CO2 26 MMHG Arterial Blood Partial Pressure O2 68 MMHG Arterial Blood HCO3 17 MMOL/L Arterial Blood Total CO2 18.0 MMOL/L Arterial Blood Oxygen Saturation 95 % Arterial Blood Base Excess -6.9 MMOL/L [place]ory Test POSITIVE Blood Gas Ventilator Setting NO Blood Gas Inspired Oxygen 2 L Laboratory Tests 09/09/19 09:05: Troponin I 0.482*H 09/09/19 11:17: Stool Occult Blood Immunoassay POSITIVEH 09/10/19 03:45: White Blood Count 9.3, Red Blood Count 3.00L, Hemoglobin 9.4L, Hematocrit 28L, Mean Corpuscular Volume 93, Mean Corpuscular Hemoglobin 31, Mean Corpuscular Hemoglobin Concent 34, Red Cell Distribution Width 15.4H, Platelet Count 167, Mean Platelet Volume 10.3, Neutrophils (%) (Auto) 74, Lymphocytes (%) (Auto) 16, Monocytes (%) (Auto) 10, Eosinophils (%) (Auto) 0, Basophils (%) (Auto) 0, Neutrophils # (Auto) 6.8, Lymphocytes # (Auto) 1.5, Monocytes # (Auto) 0.9, Eosinophils # (Auto) 0.0, Basophils # (Auto) 0.0, Sodium Level 136, Potassium Level 3.4L, Chloride Level 111H, Carbon Dioxide Level 17L, Anion Gap 8, Blood Urea Nitrogen 18, Creatinine 1.04, Estimat Glomerular Filtration Rate 50, BUN/Creatinine Ratio 17, Glucose Level 111H, Calcium Level 8.3L, Phosphorus Level 1.9L, Magnesium Level 2.1 Microbiology 09/08/19 Blood Culture - Preliminary, Resulted No growth 09/08/19 Influenza Types A,B Antigen (KEV) - Final, Complete 09/08/19 Urine Culture - Preliminary, Resulted Mixed Bacterial Laura Escherichia coli Assessment/Plan Assessment/Plan Assess & Plan/Chief Complaint lightheadedness upon standing back pain severe sepsis and UTI (e.coli) HTN BP supine, sitting, and standing fall risk continue iv antibiotics for infection Clinical Quality Measures DVT/VTE Risk/Contraindication: Risk Factor Score Per Nursin RFS Level Per Nursing on Admit: 4+=Very High EDILMA TAMAYO MED STUDEN Sep 10, 2019 08:37 POS
[2019-09-10] MEDS ORDERED: LOSA1TAB20 PO (09:19)
--- NOTE | 2019-09-10 09:22 | NUR ---
SPOKE WITH THE PT AND HER DAUGHTER ( SHE TAKES CARE OF HER MEDS) WELL GOING THRU THE EXT MED HISTORY TO COMPLETE THE MED REC. ON THE EXTERNAL MED HISTORY IT SHOWS LOSARTAN 100MG AND HCTZ 12.5MG- HOWEVER THIS WAS A NEW RX AND PT HAS NOT STARTED THIS. POTASSIUM WAS ALSO SHOWN ON THE EXTERNAL MED HISTORY BUT THIS WAS A SHORT TERM THERAPY AND SHE IS NO LONGER TAKING.
[2019-09-10] MEDS: SENNA W/DOCUSATE (SENOKOT S) TABLET PO SCH ×2 (09:38→20:34)
[2019-09-10] MEDS: ASPIRIN 81 MG CHEW (CHILDREN'S ASA) PO SCH (09:38)
--- NOTE | 2019-09-10 10:13 | Progress Note - Hospitalist ---
EDILMA SOTO [facility] 09/10/19 1013: Subjective HPI/CC On Admission Date Seen by Provider: Sep 10, 2019 Time Seen by Provider: 08:[address] Wilde: Chief complaint: Fall with severe sepsis History of present illness: This is an 88-year-old clinic patient of Dr. Duggan who has a past medical history of hypertension hyperlipidemia who presented to the ER after she suffered a fall was able to get to her cell phone called 911 and was taken to the ER. She was found to have hypotension and elevated lactic acid of 5 with an abnormal UA consistent with UTI so cefepime was given along with severe sepsis protocol IV fluid resuscitation and patient was placed in the ICU. Elevated troponin likely due to hypotension but cardiology was consulted and recommended conservative management. Patient feels much better was really where she was that sick. Family at the bedside. We will continue holding the blood pressure medication and restart her Effexor and atorvastatin. Patient denies any pain. She does not wear oxygen at home. Subjective/Events-last exam Per Nate Soto MSIII Patient states she feels much better. Does complain of Lightheadedness upon standing. Lightheadedness is better with oxygen Is not normally on oxygen. "normal" bowel movements No burning on urination Denies shortness of breath Stool Occult was positive Urine culture showed E. Coli and mixed Alura. Review of Systems General: No Chills, No Other (fevers) HEENT: No Head Aches Pulmonary: No Dyspnea, No Cough Cardiovascular: Lt Headedness; No: Chest Pain, Palpitations Gastrointestinal: No: Nausea, Vomiting, Diarrhea, Constipation Genitourinary: No Dysuria Musculoskeletal: back pain (From laying in bed) Focused Exam Lactate Level 09/08/19 16:40: Lactic Acid Level 3.09*H 09/08/19 18:10: Lactic Acid Level 5.06*H 09/08/19 22:58: Lactic Acid Level 1.51 Objective Exam Vital Signs Vital Signs Date Time Temp Pulse Resp B/P (MAP) Pulse Ox O2 Delivery O2 Flow Rate FiO2 09/10/19 08:00 36.0 86 18 165/95 (118) 99 Room Air 09/09/19 23:00 2.00 Capillary Refill : Less Than 3 Seconds General Appearance: No Apparent Distress, WD/WN HEENT: PERRL/EOMI Neck: Full Range of Motion, Normal Inspection Respiratory: Chest Non Tender, Normal Breath Sounds, No Accessory Muscle Use, No Respiratory Distress Cardiovascular: Regular Rate, Rhythm, No JVD, No Murmur, Normal Peripheral Pulses (2/4 bilaterally radial), Other (1+edema LE) Gastrointestinal: Non Tender, Soft Extremity: No Calf Tenderness Neurologic/Psychiatric: Alert, Oriented x3, Normal Mood/Affect Skin: Normal Color, Warm/Dry Results/Procedures Lab Laboratory Tests 09/10/19 03:45 Patient resulted labs reviewed. Assessment/Plan Assessment and Plan Assess & Plan/Chief Complaint lightheadedness upon standing back pain severe sepsis and UTI (e.coli) HTN Positive Stool occult test BP supine, sitting, and standing fall risk continue iv antibiotics for infection Colonoscopy Clinical Quality Measures DVT/VTE Risk/Contraindication: Risk Factor Score Per Nursin RFS Level Per Nursing on Admit: 4+=Very High ANA WILDE DO 09/10/192125: Subjective Subjective/Events-last exam Pt still very subtle cognitive deficit Light headed when she walks around but she improves with O2 Occult was positive consulted Dr. Ocasio Urine culture positive for E.coli, Sensitivity pending, maintain on Rocephin PT and OT working with her Echocardiogram ordered today May be a rehab candidate Review of Systems General: Fatigue Cardiovascular: Lt Headedness Objective Exam General Appearance: No Apparent Distress, WD/WN Respiratory: Lungs Clear Cardiovascular: Regular Rate, Rhythm Neurologic/Psychiatric: Alert, Oriented x3, Disoriented Assessment/Plan Assessment and Plan Assess & Plan/Chief Complaint Assessment: Confusion Falls UTI Sepsis PLan: Monitor closely IRF? Diagnosis/Problems Diagnosis/Problems (1) Severe sepsis Status: Acute (2) Elevated troponin I level Status: Acute (3) UTI (urinary tract infection) Status: Acute Qualifiers: Qualified Codes: N30.00 - Acute cystitis without hematuria Supervisory-Addendum Brief Verification & Attestation Participated in pt care: history, MDM, physical Personally performed: exam, history, MDM, supervision of care Care discussed with: Medical Student Procedures: n/a Results interpretation: Verified all documentation Verification and Attestation of Medical Student E/M Service A medical student performed and documented this service in my presence. I reviewed and verified all information documented by the medical student and made modifications to such information, when appropriate. I personally performed the physical exam and medical decision making. Ana Wilde, Sep 10, 2019,21:25 EDILMA SOTO MED STUD Sep 10, 2019 10:13 ANA ORDAZ DO Sep 10, 2019 21:26 POS
--- NOTE | 2019-09-10 10:14 | Physical Therapy Evaluation ---
PT Evaluation-General Medical Diagnosis Admission Date Sep 08, 2019 at 20:20 Medical Diagnosis: severe sepsis, UTI, hypoxia, elevated troponin Onset Date: Sep 08, 2019 Therapy Diagnosis Therapy Diagnosis: weakness Height/Weight Height (Feet): 5 Height (Inches): 3.00 Weight (Pounds): 144 Precautions Precautions/Isolations: Fall Prevention, Standard Precautions Weight Bear Status Right Lower Extremity: Right Weight Bearing/Tolerated Left Lower Extremity: Left Weight Bearing/Tolerated Referral Physician: Solitario Reason for Referral: Evaluation/Treatment Medical History Pertinent Medical History: Arthritis, HTN Current History EMS secondary to fall and hypotension Reviewed History: Yes Social History Home: Single Level Current Living Status: Alone Entry Into Home: Stairs With Railing PT Steps Into Home: 3 Prior Prior Level of Function SCALE: Activities may be completed with or without assistive devices. 0-Eghhjopqua-juktyyj completes the activity by him/herself with no assistance from a helper. 5-Set-up or Clean-up Assistance-helper sets up or cleans up; patient completes activity. [place] assists only prior to or following the activity. 4-Supervision or Touching Assistance-helper provides verbal cues and/or touching/steadying and/or contact guard assistance as patient completes activity. Assistance may be provided throughout the activity or intermittently. 3-Partial/Moderate Assistance-helper does LESS THAN HALF the effort. [place] lifts, holds or supports trunk or limbs, but provides less than half the effort. 2-Substantial/Maximal Assistance-helper does MORE THAN HALF the effort. [place] lifts or holds trunk or limbs and provides more than half the effort. 3-Vhxtuwvpt-jgokud does ALL the effort. Patient does none of the effort to complete the activity. Or, the assistance of 2 or more helpers is required for the patient to complete the activity. If activity was not attempted, code reason: 7-Patient Refused. 9-Not Applicable-not attempted and the patient did not perform the activity before the current illness, exacerbation or injury. 10-Not Attempted due to Environmental Limitations-(lack of equipment, weather restraints, etc.). 88-Not Attempted due to Medical Conditions or Safety Concerns. Bed Mobility: 6 Transfers (B,C,W/C): 6 Gait: 6 Stairs: 6 Indoor Mobility (Ambulation): Independent Stairs: Independent Prior Devices Use: Walker PT Evaluation-Current Subjective Patient agrees to PT. Patient concerned about ambulating in hallway d/t SOB with ambulation. States that PLOF she was able to ambulate as far as she wanted without SOB. Pain Numeric Pain Scale: 0-No Pain Location: No Pain Reported Objective Patient Orientation: Normal For Age Attachments: Oxygen (2L), IV ROM/Strength ROM Lower Extremities WFL Strength Lower Extremities Grossly 3/5 bilaterally Integumentary/Posture Integumentary See nursing notes Bowel Incontinence: No Bladder Incontinence: No Posture WFL Neuromuscular (Tone, Coordination, Reflexes) Grossly intact Sensory Vision: Functional Hearing: Functional Transfers Roll Left to Right (QC): 6 Sit to Lying (QC): 6 Lying to Sitting/Side of Bed(Q: 6 Sit to Stand (QC): 4 Chair/Sna-hu-Mhtxi Xfer(QC): 4 Car Transfer (QC): 10 CGA standing and transfer d/t "dizziness" Gait Does the Patient Walk?: Yes Mode of Locomotion: Walk Anticipated Mode of Locomotion: Walk Walk 10 feet (QC): 4 Walk 50 ft with 2 Turns(QC): 88 Walk 150 ft (QC): 88 Walking 10ft/uneven surface-QC: 88 Distance: 20' Gait Assistive Device: FWW Comments/Gait Description Slightly antalgic gait, lean on FWW, small slow steps, Wheelchair Training Does the Pt Use a Wheelchair?: No Wheel 50 ft with 2 turns (QC): 9 Wheel 150 ft (QC): 9 Type of Wheelchair: Manual Stairs 1 Step (curb) (QC): 88 4 Steps (QC): 9 12 Steps (QC): 9 Balance Sitting Static: Normal Sitting Dynamic: Normal Standing Static: Normal Standing Dynamic: Normal Picking up an Object (QC): 88 Assessment/Needs Patient able to perform bed mobility independently with some dizziness reported after position changes, that passed with rest. CGA for standing, transfer, and ambulation d/t dizziness and SOB. Patient ambulated 20' within room but reported SOB before exiting room. Patient expressed anxiety about SOB during ambulation as well. Returned to chair and O2 sats measured at 83% initially and increased t o 92% with breathing and rest. O2 increased from 2L to 3L during ambulation and transfers during remainder of session. Patient completed toileting transfer with assistance only for cleaning self. Patient seated in chair with feet elevated at conclusion of treatment. Rehab Potential: Fair PT Prison Goals Prison Goals PT Director Of Government Sales Goals Time Frame: Sep 21, 2019 Roll Left & Right (QC): 6 Sit to Lying (QC): 6 Lying-Sitting on Side/Bed(QC): 6 Sit to Stand (QC): 6 Chair/Ckz-wj-Naviz Xfer(QC): 6 Toilet Transfer (QC): 6 Car Transfer (QC): 6 Does the Patient Walk: Yes Walk 10 feet (QC): 6 Walk 50ft with 2 Turns (QC): 6 Walk 150 ft (QC): 6 Walking 10ft on Uneven Surface: 6 1 Step (curb) (QC): 6 4 Steps (QC): 9 12 Steps (QC): 9 Picking up an Object (QC): 6 Does the Pt use WC or Scooter?: No Type: N/A Type: N/A PT Plan Problem List Problem List: Activity Tolerance, Functional Strength, Safety, Balance, Gait, Transfer Treatment/Plan Treatment Plan: Continue Plan of Care Treatment Plan: Education, Functional Activity Oliver, Functional Strength, Gait, Safety, Therapeutic Exercise, Transfers Treatment Duration: Sep 21, 2019 Frequency: 6 times per week Estimated Hrs Per Day: .25 hour per day Patient and/or Family Agrees t: Yes Time/GCodes Time In: 900 Time Out: 926 Total Billed Treatment Time: 26 Total Billed Treatment 1 visit EVModC 14min FA 12min LORENA PATTERSON PT Sep 10, 2019 10:14 POS
--- NOTE | 2019-09-10 11:06 | Progress Note - Cardiology ---
Cardiology SOAP Progress Note Objective: I&O/Vital Signs 09/10/19 09/11/19 09/11/19 09/11/19 20:00 00:00 01:00 04:00 Temp 36.7 36.6 Pulse 88 90 85 Resp 20 20 B/P (MAP) 170/94 (119) 143/82 (102) Pulse Ox 99 98 O2 Delivery Nasal Cannula Nasal Cannula Nasal Cannula O2 Flow Rate 2.00 3.00 3.00 09/11/19 00:00 Intake Total 1820 ml Balance 1820 ml Weight (Pounds): 144 Weight (Calculated Kilograms): 65.639357 Constitutional: AAO x 3, well-developed, well-nourished Respiratory: No accessory muscle use; other (good bilat air entry, diminished at the base) Cardiovascular: regular rate-rhythm, S1 and S2, systolic murmur (Soft BERHANE at card base) Gastrointestional: No tender; soft; No guarding, No rebound; audible bowel sounds Extremities: No clubbing, No cyanosis, No significant edema Neurologic/Psychiatric: oriented x 3, other (moves all limbs equally) Skin: No rash on exposed areas, No ulcerations on exposed areas Results/Procedures: Labs Microbiology 09/08/19 Blood Culture - Preliminary, Resulted No growth 09/08/19 MRSA Screen - Final, Complete MRSA not isolated 09/08/19 Urine Culture - Final, Complete Mixed Bacterial Laura Escherichia coli Procedures NAME: SHABANA WE[facility] REC#: [id number] PT STATUS: ADM IN : 1930 PHYSICIAN: NATALIIA STANLEY MD ADMIT DATE: 09/08/19 Signed Date of Exam:09/10/19 CHEST 1 VIEW, AP/PA ONLY INDICATION: Dyspnea Upright portable AP view of chest is obtained. Since the examination one day earlier, there is continued mild increased density in the right perihilar and basilar region. Left lung is clear. There is no evidence of pneumothorax. IMPRESSION: Right perihilar and basilar atelectasis and/or pneumonitis without new abnormality detected. Dictated by: Dictated on workstation # [id number] Dict: 09/10/19 0752 Trans: 09/10/19 0926 [facility] [id number] Interpreted by: JOSUE SHAH MD Electronically signed by: JOSUE SHAH MD 09/10/19 0926 A/P: Assessment: Sepsis with septic shock, improving Mildly elevated troponin, likely type 2 VT due to hypotension from septic shock UTI Anemia of undetermined etiology, managed by the [facility] Hypertension Hypomagnesemia (likely due to chronic diuretic therapy for hypertension) Plan: * Echo * Continue ASA * HTN -BP not well controlled - resume home medication of Losartan without the HCTZ * Monitor labs * Further recs based on hosp course * We discussed her CV issues with her and her daughter and answered questions TEO ADAMS Sep 10, 2019 11:06 POS
[2019-09-10] MEDS ORDERED: LOSARTAN 25 MG (COZAAR) TAB PO NR (11:15)
[2019-09-10 12:00] VITALS: BP 160/88
--- NOTE | 2019-09-10 13:43 | Occupational Therapy Eval ---
OT Evaluation-General/PLF Medical Diagnosis Admission Date Sep 08, 2019 at 20:20 Medical Diagnosis: severe sepsis, UTI, hypoxia, elevated troponin Onset Date: Sep 08, 2019 Therapy Diagnosis Therapy Diagnosis: impaired ADLs and functional mobility Height/Weight Height (Feet): 5 Height (Inches): 3.00 Weight (Pounds): 144 Precautions Precautions/Isolations: Fall Prevention, Standard Precautions Safety Interventions: None Referral Physician: Solitario Medical History Pertinent Medical History: Arthritis, HTN Additional Medical History hperlipidemia Current History Per H&P: "History of present illness: This is an 88-year-old clinic patient of Dr. Duggan who has a past medical history of hypertension hyperlipidemia who presented to the ER after she suffered a fall was able to get to her cell phone called 911 and was taken to the ER. She was found to have hypotension and elevated lactic acid of 5 with an abnormal UA consistent with UTI so cefepime was given along with severe sepsis protocol IV fluid resuscitation and patient was placed in the ICU. Elevated troponin likely due to hypotension but cardiology was consulted and recommended conservative management. Patient feels much better was really where she was that sick. Family at the bedside. We will continue holding the blood pressure medication and restart her Effexor and atorvastatin. Patient denies any pain. She does not wear oxygen at home." Reviewed History: Yes Social History Home: Single Level Current Living Status: Alone Entry Into Home: Stairs With Railing Steps Into Home: 3 ADL-Prior Level of Function SCALE: Activities may be completed with or without assistive devices. 8-Gyqkjthsww-vbdfimp completes the activity by him/herself with no assistance from a helper. 5-Set-up or Clean-up Assistance-helper sets up or cleans up; patient completes activity. [place] assists only prior to or following the activity. 4-Supervision or Touching Assistance-helper provides verbal cues and/or touching/steadying and/or contact guard assistance as patient completes activity. Assistance may be provided throughout the activity or intermittently. 3-Partial/Moderate Assistance-helper does LESS THAN HALF the effort. [place] lifts, holds or supports trunk or limbs, but provides less than half the effort. 2-Substantial/Maximal Assistance-helper does MORE THAN HALF the effort. [place] lifts or holds trunk or limbs and provides more than half the effort. 8-Tsqcppwqu-onvtsl does ALL the effort. Patient does none of the effort to complete the activity. Or, the assistance of 2 or more helpers is required for the patient to complete the activity. If activity was not attempted, code reason: 7-Patient Refused. 9-Not Applicable-not attempted and the patient did not perform the activity before the current illness, exacerbation or injury. 10-Not Attempted due to Environmental Limitations-(lack of equipment, weather restraints, etc.). 88-Not Attempted due to Medical Conditions or Safety Concerns. ADL PLOF Comments Pt reports she was able to dress independently prior to hospitalization. She states her niece helps her take a bath 2 times a week, and she also has help cleaning. She is unable to use the vacuum but she is able to dust. Self Care: Needed Some Help Functional Cognition: Independent DME/Equipment: Bath Chair, Tub/Shower DME/Equipment Comments walker OT Current Status Subjective Pt is upright in recliner at start of session eating lunch, agreeable to OT evaluation on this date. Pt reports she has been getting short of breath more lately, which did not happen when she was at home. Pain Numeric Pain Scale: 0-No Pain Mental Status/Objective Patient Orientation: Person, Place, Time, Situation Attachments: Oxygen Current Glasses/Contacts: Yes Hearing Aids: No Dentures/Partials: Yes Hand Dominance: Right Upper Extremity ROM WFL, pt able to flex BUE shoulders to approximately 150 degrees Upper Extremity Coordination no deficits noted Upper Extremity Sensation pt denied any changes in sensation Upper Extremity Strength grossly 3/5 MMT BUE ADL-Treatment Eating (QC): 6 (Pt reported having no difficulty opening containers and eating lunch. OT observed pt bringing food to mouth without difficulty.) Oral Hygiene (QC): 7 Shower/Bathe Self (QC): 7 Upper Body Dressing (QC): 7 Lower Body Dressing (QC): 7 On/Off Footwear (QC): 2 (Pt reports requiring assistance to put on her socks today, ) Toileting Hygiene (QC): 7 Toilet Transfer (QC): 7 Education OT Patient Education: Energy conservation, Modified ADL techniques, Progress toward Goal/Update tx plan, Purpose of tx/functional activities Teaching Recipient: Patient Teaching Methods: Discussion Response to Teaching: Verbalize Understanding OT Fdc Goals Fdc Goals Time Frame: Sep 21, 2019 Eating (QC): 6 Oral Hygiene (QC): 6 Toileting Hygiene (QC): 6 Shower/Bathe Self (QC): 3 Upper Body Dressing (QC): 6 Lower Body Dressing (QC): 6 On/Off Footwear (QC): 6 Additional Goals: 1-Demonstrate ADL Tasks, 2-Verbalize Understanding, 3- ImproveStrength/[place] 1=Demonstrate adherence to instructed precautions during ADL tasks. 2=Patient will verbalize/demonstrate understanding of assistive devices/modifications for ADL. 3=Patient will improve strength/tolerance for activity to enable patient to perform ADL's. OT Education/Plan Problem List/Assessment Assessment: Decreased Activ Tolerance, Decreased UE Strength Discharge Recommendations Plan/Recommendations: Continue POC Treatment Plan/Plan of Care Treatment,Training & Education: Yes Patient would benefit from OT for education, treatment and training to promote independence in ADL's, mobility, safety and/or upper extremity function for ADL's. Plan of Care: ADL Retraining, Functional Mobility, UE Funct Exercise/Act Treatment Duration: Sep 21, 2019 Frequency: 5 times per week Estimated Hrs Per Day: .25 hour per day Agreement: Yes Rehab Potential: Fair Time/GCodes Start Time: 13:20 Stop Time: 13:28 Total Time Billed (hr/min): 8 Billed Treatment Time 1, MICHAEL ALBERT OT Sep 10, 2019 13:43 POS
[2019-09-10 15:51] VITALS: BP 166/76
--- NOTE | 2019-09-10 16:02 | NUR ---
Initial visit: Pt is Shinto. Facilitated conversation with the pt and four visitors as they engaged in storytelling about their lives together. Visitor, Lane, is caring for the pt's cat while she is in the hospital. The pt says her friends are positive and help her keep perspective as she tends to see the negative. Her friends lightheartedly joked about this with the pt, and also affirmed their desire to help her keep positive and hopeful.
--- NOTE | 2019-09-10 18:33 | Progress Note - Cardiology ---
Cardiology SOAP Progress Note Subjective: Weakness and malaise gradually improving No cp or palp or syncope No shortness of breath at rest No N/V Objective: I&O/Vital Signs 09/10/19 09/10/19 09/10/19 09/10/19 07:00 08:00 08:00 08:00 Temp 36.0 36.0 Pulse 87 86 86 Resp 18 18 B/P (MAP) 165/95 (118) 165/95 (118) Pulse Ox 99 99 O2 Delivery Room Air Nasal Cannula Room Air O2 Flow Rate 2.00 09/10/19 09/10/19 09/10/19 09/10/19 12:00 13:00 15:51 17:13 Temp 36.2 36.6 Pulse 84 95 89 Resp 20 20 B/P (MAP) 160/88 (112) 166/76 (106) Pulse Ox 99 99 O2 Delivery Room Air Nasal Cannula Nasal Cannula O2 Flow Rate 3.00 3.00 09/10/19 00:00 Intake Total 200 ml Balance 200 ml Weight (Pounds): 144 Weight (Calculated Kilograms): 65.512767 Constitutional: AAO x 3, well-developed, well-nourished Respiratory: No accessory muscle use; other (good bilat air entry, diminished at the base) Cardiovascular: regular rate-rhythm, S1 and S2, systolic murmur (Soft BERHANE at card base) Gastrointestional: No tender; soft; No guarding, No rebound; audible bowel sounds Extremities: No clubbing, No cyanosis, No significant edema Neurologic/Psychiatric: oriented x 3, other (moves all limbs equally) Skin: No rash on exposed areas, No ulcerations on exposed areas Results/Procedures: Labs Laboratory Tests 09/10/19 03:45: White Blood Count 9.3, Red Blood Count 3.00L, Hemoglobin 9.4L, Hematocrit 28L, Mean Corpuscular Volume 93, Mean Corpuscular Hemoglobin 31, Mean Corpuscular Hemoglobin Concent 34, Red Cell Distribution Width 15.4H, Platelet Count 167, Mean Platelet Volume 10.3, Neutrophils (%) (Auto) 74, Lymphocytes (%) (Auto) 16, Monocytes (%) (Auto) 10, Eosinophils (%) (Auto) 0, Basophils (%) (Auto) 0, Neutrophils # (Auto) 6.8, Lymphocytes # (Auto) 1.5, Monocytes # (Auto) 0.9, Eosinophils # (Auto) 0.0, Basophils # (Auto) 0.0, Sodium Level 136, Potassium Level 3.4L, Chloride Level 111H, Carbon Dioxide Level 17L, Anion Gap 8, Blood Urea Nitrogen 18, Creatinine 1.04, Estimat Glomerular Filtration Rate 50, BUN/Creatinine Ratio 17, Glucose Level 111H, Calcium Level 8.3L, Phosphorus Level 1.9L, Magnesium Level 2.1 Microbiology 09/08/19 Blood Culture - Preliminary, Resulted No growth 09/08/19 MRSA Screen - Final, Complete MRSA not isolated 09/08/19 Urine Culture - Final, Complete Mixed Bacterial Laura Escherichia coli Laboratory Tests 09/09/19 04:21 09/10/19 03:45 A/P: Assessment: Sepsis with septic shock, improving Mildly elevated troponin, likely type 2 ND due to hypotension from septic shock Echo of 09/10/19: LVEF 50%, grade 1 lozano dysfunction, mild AI, mild to mod TR, RVSP 42 mmHg UTI Anemia of undetermined etiology, managed by the Hosp [facility] Hypertension Elec abn (likely due to chronic diuretic therapy for hypertension) Plan: * Continue ASA * HTN -BP not well controlled - resume home medication of Losartan without the HCTZ * Replenish lytes * Monitor labs * Further recs based on hosp course * We discussed her CV issues with her and answered questions OLIVIA DE LA ROSA MD FACP FAC CCDS Sep 10, 2019 18:33 POS
[2019-09-10 19:34] VITALS: BP 159/84
[2019-09-10] MEDS: VENlafaxine XR 75 MG (EFFEXOR XR) CAP PO SCH (20:34)
[2019-09-11] VITALS (7 sets, daily range): BP systolic 143–197; BP diastolic 81–94
[2019-09-11] MEDS: ENOXAPARIN 40 MG/0.4 ML (LOVENOX) SYR SC SCH ×2 (00:14→00:45)
--- NOTE | 2019-09-11 00:19 | CONSULTATION REPORT ---
DATE OF SERVICE: 09/10/2019 ATTENDING PHYSICIAN: Riddhi Arriaza MD PRIMARY CARE PHYSICIAN: Dr. Duggan. HISTORY OF PRESENT ILLNESS: The patient is an 88-year-old female who was seen in consultation with Dr. Ocasio. She presented to the ER by EMS from her home where she had sustained a fall. She reports that she has been having episodes of feeling like she was going to pass out and her doctor recently started on a new medication, but had not started taking it yet. She reports that she did not feel like she was dizzy or that the room was spinning. She denies any weakness, numbness or tingling as well as no facial droop or slurred speech. She reports she was able to crawl to her cell phone and called EMS. She was unsure when she fell, but knows that it was during the morning hours. She denies any fever or chills. She does live at home by herself. Upon arrival to the ER, she was found to have hypotension and elevated lactic acid of 5 with an abnormal UA consistent with UTI and cefepime was given along with severe sepsis protocol initiated with IV fluid resuscitation and she was placed in ICU. She was also found to have an elevated troponin level; however, this is likely due to her hypotension; however, cardiology was consulted and is following. She did undergo lab testing as well as an occult stool, which did come back positive. Upon further questioning, she reports that she has never had a colonoscopy before. Denies any family history of any colon cancer. She reports that she has not noticed any bright red blood in her stool as well as no dark tarry stools. She reports that she does occasionally get heartburn and reflux usually depending on what she eats. PAST MEDICAL HISTORY: Hypercholesterolemia, hypertension, anxiety, depression. PAST SURGICAL HISTORY: Left femur ORIF, cataracts. ALLERGIES: No known drug allergies. MEDICATIONS: Atorvastatin 10 mg at bedtime, losartan/hydrochlorothiazide 50/12.5 mg 2 tablets daily, venlafaxine 75 mg at bedtime. SOCIAL HISTORY: Negative for smoke. Rare for alcohol. FAMILY HISTORY: Brother CHF, Parkinson disease. REVIEW OF SYSTEMS: This is a well-nourished female, in no acute distress. She is not experiencing any shortness of breath or difficulty breathing. No chest pain, palpitations or diaphoresis. No nausea, vomiting or abdominal pain. No diarrhea or constipation. No red blood per rectum. No dark tarry stools. No fever or chills. No recent inadvertent weight loss. No hematuria. She does report malaise as well as weakness. All other review of systems negative. PHYSICAL EXAMINATION: VITAL SIGNS: Blood pressure 160/88. Pulse 84, respirations 20, pulse ox 99% on room air, temperature 36.2 degrees Celsius. CHEST: Clear. Good breath sounds bilaterally. HEART: Regular, no murmurs. EXTREMITIES: No lower extremity edema. Negative Homans sign. HEENT: No scleral icterus. NECK: No cervical lymphadenopathy. ABDOMEN: Soft, nontender, nondistended. SKIN: Warm, dry and pink. NEUROLOGIC: Awake, alert, oriented x3. ASSESSMENT AND PLAN: An 88-year-old female status post fall, who was found to have sepsis with lactic acid of 5.0 and hypotension as well as urinary tract infection. She was also, during her admission, found to have a Hemoccult positive stool, has never had a colonoscopy before; however, denies any family history of any colon cancer. At this time, she does not appear to be symptomatic from a GI standpoint and it was discussed with the patient about proceeding with a colonoscopy due to the Hemoccult positive stool as well as her never having one before; however, at this time the patient has declined to proceed unless she should become anemic and needing blood transfusions. It was also discussed with the patient that she wishes that we could proceed with a colonoscopy on an outpatient basis in which the patient does agree to consider this option. Job ID: [id number] DocumentID: [id number] Dictated Date: 09/10/2019 17:40:12 Management Specialist Date: 09/10/2019 23:23:08 Dictated By: VLAD BISHOP
[2019-09-11] MEDS: CEFEPIME INJECTION 1,000 MG in WATER (STERILE) FOR INJECTION 10 ML IV SCH (04:01)
--- NOTE | 2019-09-11 05:00 | NUR ---
0010 - Checked on patient. Patient is awake, agitated and wanted to talk to family. 0015 - Tried to give Lovenox to patient, she REFUSED. 0018 - Called her family and patient spoke with her daughter. Patient calmed down but still REFUSED medication. 0045 - Daughter arrived. Nurse and daughter talked to patient about importance of medication, patient still REFUSED Lovenox. 0130 - Checked on patient and offered Lovenox again, patient REFUSED. 0400 - Lab came, patient REFUSED lab draws 0445 - Radiology came, family informed radiology to come back later once patient is awake and alert.
[2019-09-11] MEDS: NS W/KCL 20 MEQ/L 1,000 ML IV SCH ×2 (06:46→17:15)
--- NOTE | 2019-09-11 08:34 | Progress Note - Hospitalist ---
Subjective HPI/CC On Admission Date Seen by Provider: Sep 11, 2019 Time Seen by Provider: 07:[address] Jerez: Chief complaint: Fall with severe sepsis History of present illness: This is an 88-year-old clinic patient of Dr. Duggan who has a past medical history of hypertension hyperlipidemia who presented to the ER after she suffered a fall was able to get to her cell phone called 911 and was taken to the ER. She was found to have hypotension and elevated lactic acid of 5 with an abnormal UA consistent with UTI so cefepime was given along with severe sepsis protocol IV fluid resuscitation and patient was placed in the ICU. Elevated troponin likely due to hypotension but cardiology was consulted and recommended conservative management. Patient feels much better was really where she was that sick. Family at the bedside. We will continue holding the blood pressure medication and restart her Effexor and atorvastatin. Patient denies any pain. She does not wear oxygen at home. Subjective/Events-last exam Patient step daughter was at bedside. Patient was asleep and was agitated last night. Let patient continue to sleep Step daughter stated that patient was anxious and takes effexor at home. Patient was given Effexor last night at 2013 Daughter says that patient still is short of air Focused Exam Lactate Level 09/08/19 16:40: Lactic Acid Level 3.09*H 09/08/19 18:10: Lactic Acid Level 5.06*H 09/08/19 22:58: Lactic Acid Level 1.51 Objective Exam Vital Signs Vital Signs Date Time Temp Pulse Resp B/P (MAP) Pulse Ox O2 Delivery O2 Flow Rate FiO2 09/11/19 08:00 Nasal Cannula 2.00 09/11/19 08:00 36.4 80 18 143/83 (103) 96 Capillary Refill : Less Than 3 Seconds Results/Procedures Lab Patient resulted labs reviewed. Assessment/Plan Assessment and Plan Assess & Plan/Chief Complaint lightheadedness upon standing back pain severe sepsis and UTI (e.coli) culture showed no resistance HTN Positive Stool occult test Agitation BP supine, sitting, and standing fall risk continue iv antibiotics for infection Colonoscopy Clinical Quality Measures DVT/VTE Risk/Contraindication: Risk Factor Score Per Nursin RFS Level Per Nursing on Admit: 4+=Very High EDILMA TAMAYO MED STUD Sep 11, 2019 08:34 POS
[2019-09-11] MEDS: ASPIRIN 81 MG CHEW (CHILDREN'S ASA) PO SCH (08:38)
[2019-09-11] MEDS: SENNA W/DOCUSATE (SENOKOT S) TABLET PO SCH ×2 (08:38→21:26)
[2019-09-11] MEDS ORDERED: LOSARTAN 25 MG (COZAAR) TAB PO SCH (09:00)
[2019-09-11] MEDS ORDERED: ASPI-999 PO (09:54)
[2019-09-11] MEDS ORDERED: CEFD300C3 PO (09:54)
[2019-09-11] MEDS ORDERED: LOSA25TA41 PO (09:54)
--- NOTE | 2019-09-11 10:23 | Discharge Summary ---
EDILMA TAMAYO [facility] 09/11/19 1023: Diagnosis/Chief Complaint Date of Admission Sep 08, 2019 at 20:20 Date of Discharge 09/11/2019 Discharge Date: Sep 11, 2019 Discharge Time: 10:18 Admission Diagnosis Assessment: Severe sepsis with lactic acid 5.0 with hypotension and UTI E coli Fall HTN as outpatient HLP Subtle confusion noted anxiety Plan: Transfer to Alf unit in [place] Oral antibiotics Lovenox DVT PPx Supportive care PT/OT Primary Care Jose Duggan MD Discharge Diagnosis UTI with e.coli Anxiety Fall risk Confusion (1) Severe sepsis Status: Acute (2) Elevated troponin I level Status: Acute (3) UTI (urinary tract infection) Status: Acute Discharge Summary Procedures/Consulations Cardiology - Rachid, 09/09 - 09/11 Pulmonology - Pau. 09/09 Discharge Physical Exam Allergies: Coded Allergies: No Known Drug Allergies (Unverified , 07/28/15) Vitals & I&Os Vital Signs Date Time Temp Pulse Resp B/P (MAP) Pulse Ox O2 Delivery O2 Flow Rate FiO2 09/11/19 08:00 Nasal Cannula 2.00 09/11/19 08:00 36.4 80 18 143/83 (103) 96 General Appearance: No Apparent Distress, WD/WN Respiratory: Chest Non Tender, Lungs Clear, No Accessory Muscle Use, No Respiratory Distress Cardiovascular: No Edema, No Murmur Gastrointestinal: Soft; No Distended Skin: Normal Color, Warm/Dry Hospital Course Was the Problem List Reviewed?: Yes Patient presented to the ER on Sep 08, 2019 with a chief complaint of a fall. Patient had a temp of 36.3, Pulse of 115, B/P of 85/54, 17,300 WBC, and a lactic acid of 5.06. 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 No acute abnormality is seen. UA showed UTI with E.coli that was sensitive to all antibiotics. Patient continued to have shortness of air and Chest x-ray showed Right perihilar and basilar atelectasis and/or pneumonitis with no new abnormalities between consecutive x-rays. the night of 09/10 patient had increase agitation and denied labs. Patient will be discharged to fpc facility with antibiotics and rehab protocol due to confusion and anxiety. Labs (last 24 hrs) Microbiology 09/08/19 Blood Culture - Preliminary, Resulted No growth 09/08/19 MRSA Screen - Final, Complete MRSA not isolated 09/08/19 Urine Culture - Final, Complete Mixed Bacterial Laura Escherichia coli Patient resulted labs reviewed. Imaging: Reviewed Imaging Report Discussion & Recommendations Discharge Planning: >30 minutes discharge planning Discharge Home Medications: Active Scripts Active Cefdinir 300 Mg Capsule 300 Mg PO BID 5 Days Aspirin 81 Mg Tab.chew 81 Mg PO DAILY@0900 30 Days Losartan Potassium 25 Mg Tablet 25 Mg PO DAILY 30 Days Reported Losartan-Hctz 50-12.5 mg Tab (Losartan/Hydrochlorothiazide) 1 Each Tablet 2 Each PO HS TAKES 2 (50/12.5MG) TABS TO EQUAL 100/25MG DAILY Effexor Xr (Venlafaxine HCl) 75 Mg Cap.er.24h 75 Mg PO HS Lipitor (Atorvastatin Calcium) 10 Mg Tablet 10 Mg PO HS Instructions to patient/family Please see electronic discharge instructions given to patient. Clinical Quality Measures End of Life/Advance Care Plan: Advance Care discuss with: family member (s) Admission Status Admission Dx severe sepsis Fall Hypotension UTI Admission Status: Inpatient Order (span 2 midnights) Reason for Inpatient Admission: Severe sepsis UTI Hypotension DVT/VTE Risk/Contraindication: Risk Factor Score Per Nursin RFS Level Per Nursing on Admit: 4+=Very High Supervisory-Addendum Brief Verification & Attestation Participated in pt care: other (Nate ELLINGTON with Dr. Wilde) Personally performed: other (Nate ELLINGTON with Dr. Wilde) Care discussed with: other (Nate ELLINGTON with Dr. Wilde) Procedures: n/a Nate ELLINGTON with Dr. Solitario WILDE,ANA DO 09/11/192052: Discharge Summary Discharge Physical Exam Allergies: Coded Allergies: No Known Drug Allergies (Unverified , 07/28/15) General Appearance: No Apparent Distress, WD/WN, Chronically ill Respiratory: Lungs Clear Cardiovascular: Regular Rate, Rhythm Neurologic/Psychiatric: Alert, No Motor/Sensory Deficits, Normal Mood/Affect, social director II-XII Norm as Tested, Disoriented Hospital Course Was the Problem List Reviewed?: Yes Hospital course: Pt had an uneventful hospital course, it started out with severe sepsis and elevated troponin requiring ICU with treatment of UTI that ultimately ended up being a champion-sensitive E. Coli so that was changed to Rocephin. She overall was managed conservatively by cardiology but likely source of the elevated troponin was hypertension so she was assessed to be extremely anxious giving rise to slow recovery so senior behavioral unit at [facility] was consulted and Pt was transferred there for five more days of Omnicef for UTI and ultimately possibly returning to inpatient rehab to return home. Change of plans in afternoon 09/11/19: [facility] screened and patient does not meet cri teria and patient refuses so patient now willing to go to [place] for skilled care 09/12/19. Discussion & Recommendations Discharge Planning: >30 minutes discharge planning Supervisory-Addendum Brief Verification & Attestation Participated in pt care: history, MDM, physical Personally performed: exam, history, MDM, supervision of care Care discussed with: Medical Student Procedures: n/a Results interpretation: Verified all documentation Verification and Attestation of Medical Student E/M Service A medical student performed and documented this service in my presence. I re viewed and verified all information documented by the medical student and made modifications to such information, when appropriate. I personally performed the physical exam and medical decision making. Ana Wilde, Sep 11, 2019,20:53 Problem Qualifiers (1) UTI (urinary tract infection): Urinary tract infection type: acute cystitis Hematuria presence: without hematuria Qualified Codes: N30.00 - Acute cystitis without hematuria EDILMA TAMAYO MED STUDEN Sep 11, 2019 10:23 ANA ORDAZ DO Sep 11, 2019 20:53 POS
--- NOTE | 2019-09-11 10:38 | Physical Therapy Progress Note ---
Therapy Progress Note Patient and family declined PT at this time. Family informed PT will re-attempt later this morning prior to lunch. 1 visit, 0 tx, 10:30am LORENA PATTERSON PT Sep 11, 2019 10:38 POS
--- NOTE | 2019-09-11 11:10 | Occ Therapy Progress Note ---
Therapy Progress Note Family members standing outside pt's room, stating she was being evaluated for a jail placement, family refused OT, stating pt did not want any therapy at this time and she had already refused PT earlier. OT will attempt again later. 1, visit 10:55 MICHAEL LEMUS OT Sep 11, 2019 11:10 POS
[2019-09-11] MEDS: cefTRIAXone 1,000 MG/SWFI 10 ML IV PUSH IV SCH ×2 (11:33)
--- NOTE | 2019-09-11 12:04 | NUR ---
DISCHARGE PLANNING: Patient was evaluated for [facility] in [place] but did not meet the criteria. Family has requested that a referral be sent to [facility] for SKILLED placement short term. Goal will be to et stronger and eventually return to her independent living arrangement with family to assist with well check daily.
--- NOTE | 2019-09-11 12:34 | NUR ---
IRF Evaluation Order received to evaluate patient for the ARU. Chart review complete and it appears patient is independent with bed mobility and ambulating (20ft, FWW) with minimal assistance. Additionally, patient is refusing both PT/OT, today. Patient denied admission. It appears discharge planning is in process with the intention of SNF. Thank you for this referral.
--- NOTE | 2019-09-11 13:07 | Physical Therapy Daily Note ---
PT Daily Note-Current Subjective Patient sitting in chair with family present. Agrees to transfer back to bed but declines any other walking or therapy. States she did not have a good night and is tired from that. Pain Numeric Pain Scale: 0-No Pain Location: No Pain Reported Mental Status Patient Orientation: Normal For Age Attachments: Oxygen, IV Transfers SCALE: Activities may be completed with or without assistive devices. 3-Lgtrqmxwva-hmekbzu completes the activity by him/herself with no assistance from a helper. 5-Set-up or Clean-up Assistance-helper sets up or cleans up; patient completes activity. Reliance assists only prior to or following the activity. 4-Supervision or Touching Assistance-helper provides verbal cues and/or touching/steadying and/or contact guard assistance as patient completes activity. Assistance may be provided throughout the activity or intermittently. 3-Partial/Moderate Assistance-helper does LESS THAN HALF the effort. Reliance lifts, holds or supports trunk or limbs, but provides less than half the effort. 2-Substantial/Maximal Assistance-helper does MORE THAN HALF the effort. Reliance lifts or holds trunk or limbs and provides more than half the effort. 5-Qtaonedvs-wqkcpl does ALL the effort. Patient does none of the effort to complete the activity. Or, the assistance of 2 or more helpers is required for the patient to complete the activity. If activity was not attempted, code reason: 7-Patient Refused. 9-Not Applicable-not attempted and the patient did not perform the activity before the current illness, exacerbation or injury. 10-Not Attempted due to Environmental Limitations-(lack of equipment, weather restraints, etc.). 88-Not Attempted due to Medical Conditions or Safety Concerns. Roll Left & Right (QC): 6 Sit to Lying (QC): 4 Sit to Stand (QC): 4 Chair/Naa-yc-Tmdfk Xfer(QC): 4 Weight Bearing Right Lower Extremity: Right Weight Bearing/Tolerated Left Lower Extremity: Left Weight Bearing/Tolerated Gait Training Does the Patient Walk?: Yes Distance: 5' Gait Assistive Device: FWW Assessment Patient required Abbey to stand from chair. Transferred from chair to bed with FWW, requiring cues to sit towards HOB. Patient required assistance to lift legs into bed but was able to adjust self in supine. PT Director Digital Advertising Goals Director Digital Advertising Goals PT [facility] Goals Time Frame: Sep 21, 2019 Roll Left & Right (QC): 6 Sit to Lying (QC): 6 Lying-Sitting on Side/Bed(QC): 6 Sit to Stand (QC): 6 Chair/Wec-sy-Bumhf Xfer(QC): 6 Toilet Transfer (QC): 6 Car Transfer (QC): 6 Does the Patient Walk: Yes Walk 10 feet (QC): 6 Walk 50ft with 2 Turns (QC): 6 Walk 150 ft (QC): 6 Walking 10ft on Uneven Surface: 6 1 Step (curb) (QC): 6 4 Steps (QC): 9 12 Steps (QC): 9 Picking up an Object (QC): 6 Does the Pt use WC or Scooter?: No Type: N/A Type: N/A PT Plan Treatment/Plan Treatment Plan: Continue Plan of Care Treatment Plan: Education, Functional Activity Oliver, Functional Strength, Gait, Safety, Therapeutic Exercise, Transfers Treatment Duration: Sep 21, 2019 Frequency: 6 times per week Estimated Hrs Per Day: .25 hour per day Patient and/or Family Agrees t: Yes Time/GCodes Time In: 1252 Time Out: 1300 Total Billed Treatment Time: 8 Total Billed Treatment 1 visit FA 8min LORENA PATTERSON PT Sep 11, 2019 13:07 POS
--- NOTE | 2019-09-11 15:05 | NUR ---
CM DISCHARGE PLANNING: Primary care nurse asked if patient was discharging today d/t orders in place for discharge. F/U with [facility] et they do have a referral that has been sent et daughter is at their facility filling out admission paper work. Meghan CORTES at [facility] indicates that a care assessment would need to be completed et they would be able to finalize et potentially accept patient for admission tomorrow. Updated primary care nurse Aracelis et message was sent to SS for request of completion of Care Assessment. No further interventions needed at this time.
--- NOTE | 2019-09-11 16:12 | Progress Note - Cardiology ---
Cardiology SOAP Progress Note Subjective: Lying in bed. Denies c/o CP or dyspnea. Objective: Weight (Pounds): 144 Weight (Calculated Kilograms): 65.221799 Constitutional: AAO x 3, well-developed, well-nourished Respiratory: No accessory muscle use; other (good bilat air entry, diminished at the base) Cardiovascular: regular rate-rhythm, S1 and S2, systolic murmur (Soft BERHANE at card base) Gastrointestional: No tender; soft; No guarding, No rebound; audible bowel sounds Extremities: No clubbing, No cyanosis, No significant edema Neurologic/Psychiatric: oriented x 3, other (moves all limbs equally) Skin: No rash on exposed areas, No ulcerations on exposed areas Results/Procedures: Labs Microbiology 09/08/19 Blood Culture - Preliminary, Resulted No growth 09/08/19 MRSA Screen - Final, Complete MRSA not isolated 09/08/19 Urine Culture - Final, Complete Mixed Bacterial Luara Escherichia coli A/P: Assessment: Sepsis with septic shock, improving Mildly elevated troponin, likely type 2 [place] due to hypotension from septic shock Echo of 09/10/19: LVEF 50%, grade 1 lozano dysfunction, mild AI, mild to mod TR, RVSP 42 mmHg UTI Anemia of undetermined etiology, managed by the [facility] Hypertension Elec abn (likely due to chronic diuretic therapy for hypertension) Plan: * Continue ASA * HTN -BP not well controlled -increase losartan * Replenish lytes * Monitor labs TEO ADAMS Sep 11, 2019 16:12 POS
[2019-09-11] MEDS ORDERED: LOSARTAN 25 MG (COZAAR) TAB PO NR (16:15)
[2019-09-11] MEDS ORDERED: amLODIPine 5 MG (NORVASC) TAB PO ONE (20:50)
--- NOTE | 2019-09-11 20:56 | Discharge Inst-Skilled Nursing ---
Discharge Inst-Skilled NF Reconcile Patient Problems Problems Reviewed?: Yes Chief Complaint Per Dr. Jerez: Chief complaint: Fall with severe sepsis History of present illness: This is an 88-year-old clinic patient of Dr. Duggan who has a past medical history of hypertension hyperlipidemia who presented to the ER after she suffered a fall was able to get to her cell phone called 911 and was taken to the ER. She was found to have hypotension and elevated lactic acid of 5 with an abnormal UA consistent with UTI so cefepime was given along with severe sepsis protocol IV fluid resuscitation and patient was placed in the ICU. Elevated troponin likely due to hypotension but cardiology was consulted and recommended conservative management. Patient feels much better was really where she was that sick. Family at the bedside. We will continue holding the blood pressure medication and restart her Effexor and atorvastatin. Patient denies any pain. She does not wear oxygen at home. Patient Instructions Patient Problems: UTI Severe sepsis Elevated troponin Goal: Return to independent living Consult/Follow Up/Orders Follow Up Appt.: Dr Duggan in 1 week Skilled NF Admit to: [facility] Certification ([facility]) I certify that SNF services are required to be given on an inpatient basis because of the above named patient's need for long-term care on a continuing basis for the conditions(s) for which he/she was receiving inpatient hospital services prior to his/her transfer to the SNF. Residential Facility Order: Nursing Services, Auto Claim Representative-Evaluate & Treat, Physical Therapy-Evaluate & Treat, Speech Language-Evaluate & Treat, Wound Care-Eval/Treat Oxygen Delivery Method: Room Air Discharge Diet: Cardiac Diet Resuscitation Status: Do Not Resuscitate New & Resume Previous Orders New Medications: Cefdinir (Cefdinir) 300 Mg Capsule 300 MG PO BID for 5 Days, CAP Aspirin (Aspirin) 81 Mg Tab.chew 81 MG PO DAILY@0900 for 30 Days, TAB Losartan Potassium (Losartan Potassium) 25 Mg Tablet 25 MG PO DAILY for 30 Days, TAB Continued Medications: Atorvastatin Calcium (Lipitor) 10 Mg Tablet 10 MG PO HS Venlafaxine HCl (Effexor Xr) 75 Mg Cap.er.24h 75 MG PO HS Discontinued Medications: Losartan/Hydrochlorothiazide (Losartan-Hctz 50-12.5 mg Tab) 1 Each Tablet 2 EACH PO HS TAKES 2 (50/12.5MG) TABS TO EQUAL 100/25MG DAILY Ana Jerez Sep 11, 2019 20:55 ANA JEREZ DO Sep 11, 2019 20:55 POS
[2019-09-11] MEDS: VENlafaxine XR 75 MG (EFFEXOR XR) CAP PO SCH (21:26)
[2019-09-12] MEDS: ENOXAPARIN 40 MG/0.4 ML (LOVENOX) SYR SC SCH (00:58)
[2019-09-12] MEDS: NS W/KCL 20 MEQ/L 1,000 ML IV SCH (03:19)
[2019-09-12] MEDS ORDERED: amLODIPine 5 MG (NORVASC) TAB PO ONE (04:00)
[2019-09-12 08:00] VITALS: BP 176/97
[2019-09-12] MEDS: SENNA W/DOCUSATE (SENOKOT S) TABLET PO SCH (08:17)
[2019-09-12] MEDS: ASPIRIN 81 MG CHEW (CHILDREN'S ASA) PO SCH (08:18)
--- NOTE | 2019-09-12 08:52 | Diagnostic Imaging Report ---
INDICATION: Dyspnea. TECHNIQUE: Single view chest 3:44 AM. CORRELATION STUDY: 09/10/2019 FINDINGS: Heart size and mediastinum remain enlarged and prominent. Tortuous course of thoracic aorta. Vasculature overall stable. Fullness at the right hilum and infrahilar region persisting. Probable small effusions. IMPRESSION: 1. Persistent fullness increased density of the right perihilar and infrahilar region. This may be reflective of consolidation. Mass lesion should not be excluded at this time. Follow-up imaging is recommended. Small effusions. Dictated by: Dictated on workstation # [id number]
[2019-09-12] MEDS ORDERED: LOSARTAN 50 MG (COZAAR) TAB PO SCH (09:00)
[2019-09-12] MEDS ORDERED: amLODIPine 5 MG (NORVASC) TAB PO SCH (09:00)
--- NOTE | 2019-09-12 10:10 | Progress Note - Cardiology ---
Cardiology SOAP Progress Note Subjective: Sitting up in chair at the bedside with the family. Denies any c/o CP or palpitations. Feels breathing is good this morning. Objective: I&O/Vital Signs Weight (Pounds): 144 Weight (Calculated Kilograms): 65.874508 Constitutional: AAO x 3, well-developed, well-nourished Respiratory: No accessory muscle use; other (good bilat air entry, diminished at the base) Cardiovascular: regular rate-rhythm, S1 and S2, systolic murmur (Soft BERHANE at card base) Gastrointestional: No tender; soft; No guarding, No rebound; audible bowel so unds Extremities: No clubbing, No cyanosis, No significant edema Neurologic/Psychiatric: oriented x 3, other (moves all limbs equally) Skin: No rash on exposed areas, No ulcerations on exposed areas Results/Procedures: Labs Microbiology 09/08/19 Blood Culture - Preliminary, Resulted No growth 09/08/19 MRSA Screen - Final, Complete MRSA not isolated 09/08/19 Urine Culture - Final, Complete Mixed Bacterial Laura Escherichia coli A/P: Assessment: Sepsis with septic shock, improving Mildly elevated troponin, likely type 2 [place] due to hypotension from septic shock Echo of 09/10/19: LVEF 50%, grade 1 lozano dysfunction, mild AI, mild to mod TR, RVSP 42 mmHg UTI Anemia of undetermined etiology, managed by the [facility] Hypertension Elec abn (likely due to chronic diuretic therapy for hypertension) - resolved Plan: * Continue ASA * HTN - BP improved * Monitor labs * Possible discharge today * Continue current medications with out pt f/u TEO ADAMS Sep 12, 2019 10:10 POS
[2019-09-12] MEDS ORDERED: LOSA50TA63 PO (10:11)
[2019-09-12] MEDS ORDERED: AMLO5TAB9 PO (10:11)
[2019-09-12] MEDS: cefTRIAXone 1,000 MG/SWFI 10 ML IV PUSH IV SCH ×2 (10:14)
[2019-09-12 12:00] VITALS: BP 164/84
--- NOTE | 2019-09-12 13:17 | NUR ---
FINAL DISCHARGE PLAN: Patient is discharged today to new skilled placement with [facility]. Care Assessment has been completed will be faxed once orders have been finalized by RN . Lindy HENDRICKSON has called and given pickling machine operator time to be around the 3 O'clock time...may be slightly after due to transport returning from [place] with another resident. Nurse is awre of pick-up time.
[2019-09-12 14:40] VITALS: BP 164/84
--- NOTE | 2019-09-12 15:33 | Progress Note - Cardiology ---
Cardiology SOAP Progress Note Subjective: No cp or palp or syncope No shortness of breath at rest No swelling Weakness much improved Objective: I&O/Vital Signs 09/12/19 09/12/19 09/12/19 09/12/19 04:21 06:42 08:00 08:00 Temp 36.4 Pulse 86 99 Resp 18 22 B/P (MAP) 176/97 (123) Pulse Ox 97 O2 Delivery Nasal Cannula Nasal Cannula O2 Flow Rate 2.00 3.00 09/12/19 09/12/19 12:00 14:40 Temp 36.4 36.4 Pulse 86 86 Resp 20 20 B/P (MAP) 164/84 (110) 164/84 Pulse Ox 100 100 O2 Delivery Nasal Cannula Nasal Cannula O2 Flow Rate 3.00 3.00 09/12/19 00:00 Intake Total 960 ml Balance 960 ml Weight (Pounds): 144 Weight (Calculated Kilograms): 65.929671 Constitutional: AAO x 3, well-developed, well-nourished Respiratory: No accessory muscle use; other (good bilat air entry, diminished at the base) Cardiovascular: regular rate-rhythm, S1 and S2, systolic murmur (Soft BERHANE at card base) Gastrointestional: No tender; soft; No guarding, No rebound; audible bowel sounds Extremities: No clubbing, No cyanosis, No significant edema Neurologic/Psychiatric: oriented x 3, other (moves all limbs equally) Skin: No rash on exposed areas, No ulcerations on exposed areas Results/Procedures: Labs Microbiology 09/08/19 Blood Culture - Preliminary, Resulted No growth 09/08/19 MRSA Screen - Final, Complete MRSA not isolated 09/08/19 Urine Culture - Final, Complete Mixed Bacterial Laura Escherichia coli A/P: Assessment: Sepsis with septic shock, resolved Marked hypertension after she recovered from septic shock Mildly elevated troponin, likely type 2 [place] due to hypotension from septic shock Echo of 09/10/19: LVEF 50%, grade 1 lozano dysfunction, mild AI, mild to mod TR, RVSP 42 mmHg UTI Anemia of undetermined etiology, managed by the [facility] Elec abn (likely due to chronic diuretic therapy for hypertension) - resolved Plan: * Amlodipine added and losartan increased for bp * Continue current cardiac regimen * I answered questions from her and her family (daughter and son-in-law) * Outpt f/u advised OLIVIA DE LA ROSA MD FACP FAC CCDS Sep 12, 2019 15:33 POS
--- OUTSIDE RECORDS SUMMARY | 2019-10-04 03:15 | XMS REPORT | Continuity of Care Document ---
Author Organization Unknown Address Unknown Phone Unavailable Allergies Active Description Code Type Severity Reaction Onset Reported/Identified Relationship to Patient Clinical Status Yes No Known Drug Allergies [id number] Drug Allergy Unknown N/A 07/28/2015 Medications There is no data. Problems Date Dx Coded Attending Type Code Diagnosis Diagnosed By 08/04/2015 MACARIO IRELAND MD, Ot D62 ACUTE POSTHEMORRHAGIC ANEMIA 08/04/2015 MACARIO IRELAND MD, Ot E78.0 08/04/2015 MACARIO IRELAND MD, Ot E78.5 HYPERLIPIDEMIA, UNSPECIFIED 08/04/2015 MACARIO IRELAND MD, Ot F32.9 MAJOR DEPRESSIVE DISORDER, SINGLE EPISOD 08/04/2015 MACARIO IRELAND MD, Ot F41.9 ANXIETY DISORDER, UNSPECIFIED 08/04/2015 MACARIO IRELAND MD, Ot I10 ESSENTIAL (PRIMARY) HYPERTENSION 08/04/2015 MACARIO IRELAND MD, Ot I26.9 9 OTHER PULMONARY EMBOLISM WITHOUT ACUTE C 08/04/2015 MACARIO IRELAND MD Ot S00.31XA ABRASION OF NOSE, INITIAL ENCOUNTER 08/04/2015 MACARIO IRELAND MD, Ot S00.81XA ABRASION OF OTHER PART OF HEAD, INITIAL 08/04/2015 MACARIO IRELAND MD Ot S72.352A DISPLACED COMMINUTED FRACTURE OF SHAFT O 08/04/2015 MACARIO IRELAND MD Ot W01.198A FALL SAME LEV FROM SLIP/TRIP W STRIKE AG 08/04/2015 MACARIO IRELAND MD, Ot Y92.0 07 [place] OR YARD OF [facility] NON-INSTITUT RESI 08/04/2015 MACARIO IRELAND MD, Ot Y93.0 1 ACTIVITY, WALKING, MARCHING AND HIKING 08/13/2015 MACARIO IRELAND MD Ot D62 08/13/2015 MACARIO IRELAND MD, Ot E78.5 08/13/2015 MACARIO IRELAND MD Ot F32.9 08/13/2015 SHU VELEZ, MACARIO C Ot F41.9 08/13/2015 SHU VELEZ, MACARIO C Ot I10 08/13/2015 SHU VELEZ, MACARIO C Ot I26.9 9 08/13/2015 SHU VELEZ, MACARIO C Ot S00.31XA 08/13/2015 SHU VELEZ, MACARIO C Ot S00.81XA 08/13/2015 SHU VELEZ, MACARIO C Ot S72.352A 08/13/2015 SHU VELEZ, MACARIO C Ot W01.198A 08/13/2015 SHU VELEZ, MACARIO C Ot Y92.0 07 08/13/2015 SHU VELEZ, MACARIO C Ot Y93.0 1 08/13/2015 SHU VELEZ, MACARIO Bernardo Ot D62 08/13/2015 SHU VELEZ, MACARIO Bernardo Ot E78.5 08/13/2015 SHU VELEZ, MACARIO C Ot F32.9 08/13/2015 SHU VELEZ, MACARIO C Ot F41.9 08/13/2015 SHU VELEZ, MACARIO C Ot I10 08/13/2015 SHU VELEZ, MACARIO C Ot I26.9 9 08/13/2015 SHU VELEZ, MACARIO C Ot S00.31XA 08/13/2015 SHU VELEZ, MACARIO C Ot S00.81XA 08/13/2015 SHU VELEZ, MACARIO Bernardo Ot S72.352A 08/13/2015 SHU VELEZ, MACARIO C Ot W01.198A 08/13/2015 SHU VELEZ, MACARIO C Ot Y92.0 07 08/13/2015 SHU VELEZ, MACARIO Bernardo Ot Y93.0 1 09/11/2019 JADEN VELEZ, NATALIIA James Ot A41. 51 SEPSIS DUE TO ESCHERICHIA COLI [E. COLI] 09/11/2019 JADEN VELEZ, NATALIIA James Ot D64. 9 ANEMIA, UNSPECIFIED 09/11/2019 JADEN VELEZ, NATALIIA James Ot E78. 00 PURE HYPERCHOLESTEROLEMIA, UNSPECIFIED 09/11/2019 JADEN VELEZ, NATALIIA James Ot E83. 42 HYPOMAGNESEMIA 09/11/2019 JADEN VELEZNATALIIA Ot F32. 9 MAJOR DEPRESSIVE DISORDER, SINGLE EPISOD 09/11/2019 NATALIIA STANLEY MD Ot I10 ESSENTIAL (PRIMARY) HYPERTENSION 09/11/2019 NATALIIA STANLEY MD Ot I21. A1 MYOCARDIAL INFARCTION TYPE 2 09/11/2019 NATALIIA STANLEY MD Ot N30. 00 ACUTE CYSTITIS WITHOUT HEMATURIA 09/11/2019 NATALIIA STANLEY MD Ot R09. 02 HYPOXEMIA 09/11/2019 NATALIIA STANLEY MD Ot R65. 21 SEVERE SEPSIS WITH SEPTIC SHOCK 09/11/2019 NATALIIA STANLEY MD Ot T50.2X5A ADVRS EFF OF CRBNC-ANHYDR INHIBTR, BENZO 09/11/2019 NATALIIA STANLEY MD Ot Z66 DO NOT RESUSCITATE 09/12/2019 NATALIIA STANLEY MD, Ot A41. 51 SEPSIS DUE TO ESCHERICHIA COLI [E. COLI] 09/12/2019 NATALIIA STANLEY MD, Ot D64. 9 ANEMIA, UNSPECIFIED 09/12/2019 NATALIIA STANLEY MD Ot E78. 00 PURE HYPERCHOLESTEROLEMIA, UNSPECIFIED 09/12/2019 NATALIIA STANLEY MD Ot E83. 42 HYPOMAGNESEMIA 09/12/2019 NATALIIA STANLEY MD Ot F32. 9 MAJOR DEPRESSIVE DISORDER, SINGLE EPISOD 09/12/2019 NATALIIA STANLEY MD Ot I10 ESSENTIAL (PRIMARY) HYPERTENSION 09/12/2019 NATALIIA STANLEY MD Ot I21. A1 MYOCARDIAL INFARCTION TYPE 2 09/12/2019 NATALIIA STANLEY MD Ot N30. 00 ACUTE CYSTITIS WITHOUT HEMATURIA 09/12/2019 NATALIIA STANLEY MD Ot R09. 02 HYPOXEMIA 09/12/2019 NATALIIA STANLEY MD Ot R65. 21 SEVERE SEPSIS WITH SEPTIC SHOCK 09/12/2019 NATALIIA STANLEY MD Ot T50.2X5A ADVRS EFF OF CRBNC-ANHYDR INHIBTR, BENZO 09/12/2019 NATALIIA STANLEY MD Ot Z66 DO NOT RESUSCITATE 09/12/2019 NATALIIA STANLEY MD Ot A41. 51 SEPSIS DUE TO ESCHERICHIA COLI [E. COLI] 09/12/2019 NATALIIA STANLEY MD Ot D64. 9 ANEMIA, UNSPECIFIED 09/12/2019 NATALIIA STANLEY MD Ot E78. 5 HYPERLIPIDEMIA, UNSPECIFIED 09/12/2019 NATALIIA STANLEY MD, Ot E83. 42 HYPOMAGNESEMIA 09/12/2019 NATALIIA STANLEY MD, Ot F32. 9 MAJOR DEPRESSIVE DISORDER, SINGLE EPISOD 09/12/2019 NATALIIA STANLEY MD, Ot F41. 9 ANXIETY DISORDER, UNSPECIFIED 09/12/2019 NATALIIA STANLEY MD, Ot I10 ESSENTIAL (PRIMARY) HYPERTENSION 09/12/2019 NATALIIA STANLEY MD, Ot I21. A1 MYOCARDIAL INFARCTION TYPE 2 09/12/2019 NATALIIA STANLEY MD, Ot N30. 00 ACUTE CYSTITIS WITHOUT HEMATURIA 09/12/2019 NATALIIA STANLEY MD, Ot R09. 02 HYPOXEMIA 09/12/2019 NATALIIA STANLEY MD, Ot R19. 5 OTHER FECAL ABNORMALITIES 09/12/2019 NATALIIA STANLEY MD, Ot R41. 89 OTH SYMPTOMS AND SIGNS W COGNITIVE FUNCT 09/12/2019 NATALIIA STANLEY MD, Ot R65. 21 SEVERE SEPSIS WITH SEPTIC SHOCK 09/12/2019 NATALIIA STANLEY MD, Ot T50.2X5A ADVRS EFF OF CRBNC-ANHYDR INHIBTR, BENZO 09/12/2019 NATALIIA STANLEY MD, Ot Z66 DO NOT RESUSCITATE Procedures Code Description Performed By Per formed On [id number] RE POSITION L FEMUR SHAFT WITH INTRAMED F 07/29/2015 Results Test Result Range Complete blood count (CBC) with automate d white blood cell (WBC) differential - 09/08/19 16:40 Blood leukocytes automated count (number/volume) 17.3 10*3/uL 4.3-11.0 Blood erythrocytes automated count (number/volume) 3.47 10*6/uL 4.35-5.85 Venous blood hemoglobin measurement (mass/volume) 10.9 g/dL 11.5-16.0 Blood hematocrit (volume fraction) 32 % 35-52 Automated erythrocyte mean corpuscular volume 92 [ foz_us] 80-99 Automated erythrocyte mean corpuscular h emoglobin (mass per erythrocyte) 31 pg 25-34 Automated erythrocyte mean corpuscular h emoglobin concentration measurement (mass/volume) 34 g/dL 32-36 Automated erythrocyte distribution width ratio 14. 9 % 10.0- 14.5 Automated blood platelet count (count/volume) 194 10*3/uL 130-400 Automated blood platelet mean volume measurement 10.4 [foz_us] 7.4-10.4 Automated blood neutrophils/100 leukocytes 87 % 42-75 Automated blood lymphocytes/100 leukocytes 7 % 12-44 Blood monocytes/100 leukocytes 6 % 0-12 Automated blood eosinophils/100 leukocytes 0 % 0-10 Automated blood basophils/100 leukocytes 0 % 0-10 Blood neutrophils automated count (number/volume) 15.1 10*3 1.8-7.8 Blood lymphocytes automated count (number/volume) 1.1 10*3 1.0-4.0 Blood monocytes automated count (number/volume) 1. 0 10*3 0.0-1.0 Automated eosinophil count 0.1 10*3/uL 0 .0-0.3 Automated blood basophil count (count/volume) 0.0 10*3/uL 0.0-0.1 PT panel in platelet poor plasma by coag ulation assay - 09/08/19 16:40 Prothrombin time (PT) in platelet poor plasma by coagu lation assay 15.5 s 12.2-14.7 INR in platelet poor plasma or blood by coagulation as say 1.2 0.8-1.4 Activated partial thromboplastin time (a PTT) in platelet poor plasma bycoagulation assay - 09/08/19 16:40 Activated partial thromboplastin time (a PTT) in platelet poor plasma bycoagulation assay 33 s 24-35 Blood lactic acid measurement (moles/vol ume) - 09/08/19 16:40 Blood lactic acid measurement (moles/volume) 3.09 mmol/L 0.50-2.00 Influenza virus A and B antigen detectio n - 09/08/19 16:40 FLU RESULT NEGATIVE FOR INFLUENZA A AND B ANTIGENS BY [facility] Comprehensive metabolic panel - 09/08/19 16:40 Serum or plasma sodium measurement (moles/volume) 137 mmol/L 135-145 Serum or plasma potassium measurement (moles/volume) 3.3 mmol/L 3.6-5.0 Serum or plasma chloride measurement (moles/volume) 103 mmol/L 98-107 Carbon dioxide 20 mmol/L 21-32 Serum or plasma anion gap determination (moles/volume) 14 mmol/L 5-14 Serum or plasma urea nitrogen measurement (mass/volume ) 22 mg/dL 7-18 Serum or plasma creatinine measurement (mass/volume) 1.38 mg/dL 0.60-1.30 Serum or plasma urea nitrogen/creatinine mass ratio 16 NRG Serum or plasma creatinine measurement w ith calculation of estimated glomerular filtration rate 36 NRG Serum or plasma glucose measurement (mass/volume) 163 mg/dL 70-105 Serum or plasma calcium measurement (mass/volume) 9.1 mg/dL 8.5-10.1 Serum or plasma total bilirubin measurement (mass/volu me) 0.7 mg/dL 0.1-1.0 Serum or plasma alkaline phosphatase tonie surement (enzymatic activity/volume) 137 U/L 40-136 Serum or plasma aspartate aminotransfera se measurement (enzymatic activity/volume) 10 U/L 5-34 Serum or plasma alanine aminotransferase measurement (enzymatic activity/volume) 8 U/L 0-55 Serum or plasma protein measurement (mass/volume) 6.7 g/dL 6.4-8.2 Serum or plasma albumin measurement (mass/volume) 4.0 g/dL 3.2-4.5 CALCIUM CORRECTED 9.1 mg/dL 8.5-10.1 Serum or plasma creatine kinase measurem ent (enzymatic activity/volume) - 09/08/19 16:40 Serum or plasma creatine kinase measurem ent (enzymatic activity/volume) 47 U/L 29-168 Serum or plasma troponin i.cardiac measu rement (mass/volume) - 09/08/19 16:40 Serum or plasma troponin i.cardiac measurement (mass/v olume) 0.301 ng/mL <0.028 Manual absolute plasma cell count - 08/12 16:40 Blood monocytes/100 leukocytes 5 % NRG Manual blood segmented neutrophils/100 leukocytes 91 % NRG Manual blood lymphocytes/100 leukocytes 4 % NRG Blood anisocytosis detection by light microscopy S LIGHT NRG Serum or plasma lithium measurement (mol es/volume) - 09/08/19 16:40 BNP PT 339.6 pg/mL <100.0 Serum or plasma C reactive protein measu rement (mass/volume) - 09/08/19 16:40 Serum or plasma C reactive protein measurement (mass/v olume) 1.92 mg/dL 0.00-0.50 Bacterial blood culture - 09/08/19 16:40 Bacterial blood culture NG NRG Bacterial blood culture - 09/08/19 16:55 Bacterial blood culture NG NRG Arterial blood gas measurement - 9 16:59 Blood pCO2 26 mm[Hg] 35-45 Blood pO2 68 mm[Hg] 79-93 Arterial blood bicarbonate measurement (moles/volume) 17 mmol/L 23-27 Arterial blood base excess by calculation -6.9 mmo l/L -2.5-2.5 Arterial blood oxygen saturation measurement 95 % 94-100 * Inhaled oxygen flow rate 2 L NRG Arterial blood pH measurement with patient temperature correction 7.42 7.37-7.43 Arterial blood carbon dioxide, total measurement (mole s/volume) 18.0 mmol/L 21.0-31.0 Body site RIGHT RADIAL NRG Assessment of wrist artery patency prior to arterial p uncture POSITIVE NRG Setting of ventilation mode NO NR G Measurement of body temperature 35 NRG Complete urinalysis with reflex to cultu re - 09/08/19 18:00 Urine color determination DARK YELLOW N RG Urine clarity determination SL CLOUDY N RG Urine pH measurement by test strip 6.0 5-9 Specific gravity of urine by test strip 1.025 1.016-1.022 Urine protein assay by test strip, semi-quantitative NEGATIVE NEGATIVE Urine glucose detection by automated test strip NE GATIVE NEGATIVE Erythrocytes detection in urine sediment by light micr oscopy NEGATIVE NEGATIVE Urine ketones detection by automated test strip TR KALEE NEGATIVE Urine nitrite detection by test strip POSITIVE NEGATIVE Urine total bilirubin detection by test strip NEGA TIVE NEGATIVE Urine urobilinogen measurement by automated test strip (mass/volume) 1.0 mg/dL < = 1.0 Urine leukocyte esterase detection by dipstick TRA CE NEGATIVE Automated urine sediment erythrocyte cou nt by microscopy (number/high power field) NONE NRG Automated urine sediment leukocyte count by microscopy (number/high power field) [HPF] NRG Bacteria detection in urine sediment by light microsco py LARGE NRG Squamous epithelial cells detection in u rine sediment by light microscopy 2-5 NRG Crystals detection in urine sediment by light microsco py NONE NRG Casts detection in urine sediment by light microscopy NONE NRG Mucus detection in urine sediment by light microscopy NEGATIVE NRG Complete urinalysis with reflex to culture YES NRG Bacterial urine culture - 09/08/19 18:00 Bacterial urine culture [id number] NRG COLONY COUNT >100,000/ML NRG FTX;REPORTABLE SUSCEPTIBILITY REPORTED 09-10-19 NRG FREE TEXT ENTRY 2 PRELIM RAPID ID TESTING AT [facility] NRG FREE TEXT ENTRY 3 CONFIRMED BY RML NRG Dirithromycin susceptibility test by dis k diffusion - 09/08/19 18:00 Gentamicin susceptibility test by minimum inhibitory c oncentration <= NRG Trimethoprim/sulfamethoxazole susceptibi lity test by minimum inhibitoryconcentration <= NRG Levofloxacin susceptibility test by minimum inhibitory concentration <= NRG Ampicillin susceptibility test by minimum inhibitory c oncentration <= NRG Cefazolin susceptibility test by minimum inhibitory co ncentration <= NRG Ceftriaxone susceptibility test by minimum inhibitory concentration <= NRG Ciprofloxacin susceptibility test by minimum inhibitor y concentration <= NRG Meropenem susceptibility test by minimum inhibitory co ncentration <= NRG Nitrofurantoin susceptibility test by mi nimum inhibitory concentration <= NRG Amoxicillin and clavulanate potassium susc KEV <= NRG Serum or plasma lactate measurement (mol es/volume) - 09/08/19 18:10 Serum or plasma lactate measurement (moles/volume) 5.06 mmol/L 0.50-2.00 Blood lactic acid measurement (moles/vol ume) - 09/08/19 22:58 Blood lactic acid measurement (moles/volume) 1.51 mmol/L 0.50-2.00 Serum or plasma troponin i.cardiac measu rement (mass/volume) - 09/08/19 22:58 Serum or plasma troponin i.cardiac measurement (mass/v olume) 0.580 ng/mL <0.028 Methicillin resistant Staphylococcus aur eus (MRSA) screening culture - 09/08/19 23:30 Methicillin resistant Staphylococcus aureus (MRSA) scr eening culture NEG NRG Complete blood count (CBC) with automate d white blood cell (WBC) differential - 09/09/19 04:21 Blood leukocytes automated count (number/volume) 9.5 10*3/uL 4.3-11.0 Blood erythrocytes automated count (number/volume) 2.93 10*6/uL 4.35-5.85 Venous blood hemoglobin measurement (mass/volume) 9.2 g/dL 11.5-16.0 Blood hematocrit (volume fraction) 27 % 35-52 Automated erythrocyte mean corpuscular volume 93 [ foz_us] 80-99 Automated erythrocyte mean corpuscular h emoglobin (mass per erythrocyte) 31 pg 25-34 Automated erythrocyte mean corpuscular h emoglobin concentration measurement (mass/volume) 34 g/dL 32-36 Automated erythrocyte distribution width ratio 14. 8 % 10.0- 14.5 Automated blood platelet count (count/volume) 156 10*3/uL 130-400 Automated blood platelet mean volume measurement 10.7 [foz_us] 7.4-10.4 Automated blood neutrophils/100 leukocytes 83 % 42-75 Automated blood lymphocytes/100 leukocytes 10 % 12-44 Blood monocytes/100 leukocytes 7 % 0-12 Automated blood eosinophils/100 leukocytes 0 % 0-10 Automated blood basophils/100 leukocytes 0 % 0-10 Blood neutrophils automated count (number/volume) 7.9 10*3 1.8-7.8 Blood lymphocytes automated count (number/volume) 1.0 10*3 1.0-4.0 Blood monocytes automated count (number/volume) 0. 7 10*3 0.0-1.0 Automated eosinophil count 0.0 10*3/uL 0 .0-0.3 Automated blood basophil count (count/volume) 0.0 10*3/uL 0.0-0.1 Whole blood basic metabolic panel - 10/28 04:21 Serum or plasma sodium measurement (moles/volume) 136 mmol/L 135-145 Serum or plasma potassium measurement (moles/volume) 4.2 mmol/L 3.6-5.0 Serum or plasma chloride measurement (moles/volume) 106 mmol/L 98-107 Carbon dioxide 17 mmol/L 21-32 Serum or plasma anion gap determination (moles/volume) 13 mmol/L 5-14 Serum or plasma urea nitrogen measurement (mass/volume ) 22 mg/dL 7-18 Serum or plasma creatinine measurement (mass/volume) 1.13 mg/dL 0.60-1.30 Serum or plasma urea nitrogen/creatinine mass ratio 19 NRG Serum or plasma creatinine measurement w ith calculation of estimated glomerular filtration rate 46 NRG Serum or plasma glucose measurement (mass/volume) 120 mg/dL 70-105 Serum or plasma calcium measurement (mass/volume) 8.1 mg/dL 8.5-10.1 Serum or plasma phosphate measurement (m ass/volume) - 09/09/19 04:21 Serum or plasma phosphate measurement (mass/volume) 2.7 mg/dL 2.3-4.7 Magnesium - 09/09/19 04:21 Magnesium 1.2 mg/dL 1.6-2.4 Serum or plasma troponin i.cardiac measu rement (mass/volume) - 09/09/19 04:21 Serum or plasma troponin i.cardiac measurement (mass/v olume) 0.538 ng/mL <0.028 Serum or plasma troponin i.cardiac measu rement (mass/volume) - 09/09/19 09:05 Serum or plasma troponin i.cardiac measurement (mass/v olume) 0.482 ng/mL <0.028 OCCULT BLOOD STOOL - 09/09/19 11:17 Stool gastrointestinal hemoglobin detection POSITI VE NEGATIVE Complete blood count (CBC) with automate d white blood cell (WBC) differential - 09/10/19 03:45 Blood leukocytes automated count (number/volume) 9.3 10*3/uL 4.3-11.0 Blood erythrocytes automated count (number/volume) 3.00 10*6/uL 4.35-5.85 Venous blood hemoglobin measurement (mass/volume) 9.4 g/dL 11.5-16.0 Blood hematocrit (volume fraction) 28 % 35-52 Automated erythrocyte mean corpuscular volume 93 [ foz_us] 80-99 Automated erythrocyte mean corpuscular h emoglobin (mass per erythrocyte) 31 pg 25-34 Automated erythrocyte mean corpuscular h emoglobin concentration measurement (mass/volume) 34 g/dL 32-36 Automated erythrocyte distribution width ratio 15. 4 % 10.0- 14.5 Automated blood platelet count (count/volume) 167 10*3/uL 130-400 Automated blood platelet mean volume measurement 10.3 [foz_us] 7.4-10.4 Automated blood neutrophils/100 leukocytes 74 % 42-75 Automated blood lymphocytes/100 leukocytes 16 % 12-44 Blood monocytes/100 leukocytes 10 % 0-12 Automated blood eosinophils/100 leukocytes 0 % 0-10 Automated blood basophils/100 leukocytes 0 % 0-10 Blood neutrophils automated count (number/volume) 6.8 10*3 1.8-7.8 Blood lymphocytes automated count (number/volume) 1.5 10*3 1.0-4.0 Blood monocytes automated count (number/volume) 0. 9 10*3 0.0-1.0 Automated eosinophil count 0.0 10*3/uL 0 .0-0.3 Automated blood basophil count (count/volume) 0.0 10*3/uL 0.0-0.1 Whole blood basic metabolic panel - 11/28 03:45 Serum or plasma sodium measurement (moles/volume) 136 mmol/L 135-145 Serum or plasma potassium measurement (moles/volume) 3.4 mmol/L 3.6-5.0 Serum or plasma chloride measurement (moles/volume) 111 mmol/L 98-107 Carbon dioxide 17 mmol/L 21-32 Serum or plasma anion gap determination (moles/volume) 8 mmol/L 5-14 Serum or plasma urea nitrogen measurement (mass/volume ) 18 mg/dL 7-18 Serum or plasma creatinine measurement (mass/volume) 1.04 mg/dL 0.60-1.30 Serum or plasma urea nitrogen/creatinine mass ratio 17 NRG Serum or plasma creatinine measurement w ith calculation of estimated glomerular filtration rate 50 NRG Serum or plasma glucose measurement (mass/volume) 111 mg/dL 70-105 Serum or plasma calcium measurement (mass/volume) 8.3 mg/dL 8.5-10.1 Serum or plasma phosphate measurement (m ass/volume) - 09/10/19 03:45 Serum or plasma phosphate measurement (mass/volume) 1.9 mg/dL 2.3-4.7 Magnesium - 09/10/19 03:45 Magnesium 2.1 mg/dL 1.6-2.4 Encounters ACCT No. Visit Date/Time Discharge Status Pt. Type Provider Facility Loc./Unit Complaint [id number] 09/08/2019 20:20:00 019 14:40:00 DIS Inpatient JADEN VELEZ, NATALIIA James [facility] 4TH SEPTIC SEVERE, ELEVATED TROPONIN, UTI, HYPOXIA [id number] 07/28/2015 21:00:00 015 14:45:00 DIS Inpatient SHU VELEZ, MACARIO Bernardo [facility] 4TH L FEMUR FRACTURE
== END 2019-09-12 14:40 | DRG 871 ==
LOC: EDUNIT# 16:22 → ER 16:23 → ICU 20:20 → 4TH 09-09 13:32
PROVIDERS: ADMIT Internal Medicine; ATTEND Internal Medicine
DX: A41.51 Sepsis due to Escherichia coli [E. coli] (principal); R65.21 Severe sepsis with septic shock; N30.00 Acute cystitis without hematuria; I21.A1 Myocardial infarction type 2; I10 Essential (primary) hypertension; E78.5 Hyperlipidemia, unspecified; R09.02 Hypoxemia; Z66 Do not resuscitate; D64.9 Anemia, unspecified; E83.42 Hypomagnesemia; T50.2X5A Adverse effect of carbonic-anhydrase inhibitors, benzothiadiazides and other diuretics, initial encounter; F32.9 Major depressive disorder, single episode, unspecified; R19.5 Other fecal abnormalities; R41.89 Other symptoms and signs involving cognitive functions and awareness; F41.9 Anxiety disorder, unspecified
CPT/HCPCS: 36415; 36600; 70450; 71045; 72125; 80048; 80053; 81000; 82274; 82550; 82805; 83605; 83735; 83880; 84100; 84484; 85007; 85025; 85027; 85610; 85730; 86141; 87040; 87077; 87081; 87088; 87186; 87804; 93005; 93306; 96361; 96374

== ENCOUNTER → 2020-03-14 | Outpatient (CLI) | payer MEDICARE ==
[~2020-03-14] MED LIST changes: +AMLO5TAB9 PO; +ASPI-999 PO; +CEFD300C3 PO; +LOSA1TAB20 PO; +LOSA25TA41 PO; +LOSA50TA63 PO; -TRAM50TA2 PO; +TRM50T PO
[2020-03-14 15:33] LABS: ABSOLUTE RETIC # 28 10e9/L (24-90); BASOPHILS % (AUTO) 0 % (0-10); EOSINOPHILS # (AUTO) 0.5 10^3/uL (0.0-0.3); EOSINOPHILS % (AUTO) 6 % (0-10); HEMATOCRIT 36 % (35-52); HEMOGLOBIN 11.4 G/DL (11.5-16.0); LYMPHOCYTES # (AUTO) 2.3 X 10^3 (1.0-4.0); LYMPHOCYTES % (AUTO) 31 % (12-44); MEAN CORPUSCULAR HEMOGLOBIN 31 PG (25-34); MEAN CORPUSCULAR HGB CONC 32 G/DL (32-36); MEAN CORPUSCULAR VOLUME 97 FL (80-99); MEAN PLATELET VOLUME 9.3 FL (7.4-10.4); MONOCYTES # (AUTO) 0.5 X 10^3 (0.0-1.0); MONOCYTES % (AUTO) 7 % (0-12); NEUTROPHILS # (AUTO) 4.2 X 10^3 (1.8-7.8); NEUTROPHILS % (AUTO) 55 % (42-75); PLATELET COUNT 249 10^3/uL (130-400); RED CELL DISTRIBUTION WIDTH 12.9 % (10.0-14.5); RETICULOCYTE % 0.77 % (0.50-2.40); WHITE BLOOD COUNT 7.5 10^3/uL (4.3-11.0)
[2020-03-14 16:04] LABS: BAND NEUTROPHILS 0 %; BASOPHILS % (MANUAL) 0 %; EOSINOPHILS % (MANUAL) 3 %; LYMPHOCYTES % (MANUAL) 26 %; MONOCYTES % (MANUAL) 8 %; NEUTROPHILS % (MANUAL) 63 %; RBC MORPH NORMAL
== END ==
LOC: LAB 15:18
PROVIDERS: ATTEND Internal Medicine
DX: D64.9 Anemia, unspecified (principal)
CPT/HCPCS: 36415; 85007; 85027; 85045

== ENCOUNTER → 2020-04-15 | Outpatient (CLI) | payer MEDICARE ==
[2020-04-15 15:09] LABS: ABSOLUTE RETIC # 26 10e9/L (24-90); BASOPHILS % (AUTO) 0 % (0-10); EOSINOPHILS # (AUTO) 0.2 10^3/uL (0.0-0.3); EOSINOPHILS % (AUTO) 2 % (0-10); HEMATOCRIT 36 % (35-52); HEMOGLOBIN 11.7 G/DL (11.5-16.0); LYMPHOCYTES # (AUTO) 2.4 X 10^3 (1.0-4.0); LYMPHOCYTES % (AUTO) 35 % (12-44); MEAN CORPUSCULAR HEMOGLOBIN 31 PG (25-34); MEAN CORPUSCULAR HGB CONC 33 G/DL (32-36); MEAN CORPUSCULAR VOLUME 95 FL (80-99); MEAN PLATELET VOLUME 9.5 FL (7.4-10.4); MONOCYTES # (AUTO) 0.7 X 10^3 (0.0-1.0); MONOCYTES % (AUTO) 10 % (0-12); NEUTROPHILS # (AUTO) 3.7 X 10^3 (1.8-7.8); NEUTROPHILS % (AUTO) 53 % (42-75); PLATELET COUNT 231 10^3/uL (130-400); RED CELL DISTRIBUTION WIDTH 13.1 % (10.0-14.5); RETICULOCYTE % 0.68 % (0.50-2.40)
[2020-04-15 15:32] LABS: BAND NEUTROPHILS 0 %; BASOPHILS % (MANUAL) 1 %; EOSINOPHILS % (MANUAL) 3 %; LYMPHOCYTES % (MANUAL) 38 %; MONOCYTES % (MANUAL) 7 %; NEUTROPHILS % (MANUAL) 51 %; RBC MORPH NORMAL
== END ==
LOC: LAB 14:45
PROVIDERS: ATTEND Internal Medicine
DX: D64.9 Anemia, unspecified (principal)
CPT/HCPCS: 36415; 85007; 85027; 85045